=== PATIENT | female | born 1985 | race Caucasian/White ===

== ENCOUNTER 2021-06-23 10:02 | Outpatient (CLI) | payer BC, SELFPAY ==
--- NOTE | 2021-06-23 10:14 | MR_ITS ---
WS: [id number] MRI LUMBAR SPINE NONCONTRAST TECHNIQUE: Sagittal T1, T2 and STIR imaging. Axial T1 and T2 imaging. CLINICAL INFORMATION: LUMBAR BACK PAIN AND RADICULOPATHY COMPARISON: None. FINDINGS: Mild lumbar curve. No acute compression. No high-grade central canal stenosis. L1-L2: Normal. L2-L3: Normal. L3-L4: Minimal annular bulging. Mild facet arthropathy. Spinal canal and foramen are patent. L4-L5: Mild annular bulging. Mild facet arthropathy. Slight effacement of ventral thecal sac. Tiny ri ght foraminal protrusion with mild right foraminal narrowing. Correlation right L4 nerve root symptoms. Spinal canal and left foramen are patent. L5-S1: Minimal annular bulging. Mild facet arthropathy. Spinal canal and foramen are patent. Visualized pelvic bony structures: Normal. Paravertebral soft tissues: Normal. MR/MR lumbar spine wo con* [id number] IMPRESSION: 1. Mild lumbar curve. No acute compression. No high-grade central canal stenos is. 2. Mild annular bulging L4-5 with slight effacement of ventral thecal sac. Tin y right foraminal protrusion with mild right foraminal narrowing. 3. Otherwise no significant spinal canal or foraminal narrowing. 4. Mild facet arthropathy L3-L4 and L4-L5.
== END 2021-06-23 10:03 | disposition home or self-care (01) ==
PROVIDERS: PCP Family Medicine; Visit Provider Family Medicine
DX: M54.16 Radiculopathy, lumbar region (principal); M47.816 Spondylosis without myelopathy or radiculopathy, lumbar region
CPT/HCPCS: 72148

== ENCOUNTER 2021-08-13 12:27 | Outpatient (CLI) | payer BC, SELFPAY ==
[2021-08-13 13:10] LABS: Basophils # 0.1 10^3/uL (0.0-0.1); Basophils % 1.3 %; Eosinophils # 0.1 10^3/uL (0.0-0.8); Eosinophils % 2.2 %; Hematocrit 30.2 % (37.0-47.0); Hemoglobin 9.5 g/dL (11.5-15.3); Lymphocytes # 1.9 10^3/uL (0.8-4.8); Mean Corpuscular HGB Conc 31.5 g/dL (30.0-36.0); Mean Corpuscular Hemoglobin 25.3 pg (28.0-34.0); Mean Corpuscular Volume 80.5 fl (81-99); Mean Platelet Volume 10.2 fL (7.4-10.4); Monocytes # 0.4 10^3/uL (0.2-0.9); Monocytes % 5.7 %; Neutrophils # 3.86 10^3/uL (1.8-7.7); Neutrophils % 60.6 %; Nucleated Red Blood Cells % 0 %; Platelet Count 207 10^3/cmm (130-400); Red Blood Count 3.75 10^6/uL (4.1-5.3); Red Cell Distribution Width 16.2 % (12.1-15.1); White Blood Count 6.4 10^3/uL (4.0-10.0)
[2021-08-13 13:49] LABS: Anion Gap 13.7 (5-19); Blood Urea Nitrogen 4 mg/dL (6-20); C Reactive Protein 0.3 mg/L (0.0-4.9); CKMB 8.6 ng/mL (0-5.34); CKMB Relative Index 2.5 % (0.0-10.4); Calcium 8.3 mg/dL (8.5-10.5); Carbon Dioxide 23 mmol/L (22-29); Chloride 97 mmol/L (98-107); Glomerular Filtration Rate 111.9 mL/min (90-130); Glucose 81 mg/dL (65-115); Osmolality Calculated 266 mOsm/kg (285-295); Potassium 3.7 mmol/L (3.5-5.1); Sodium 130 mmol/L (136-145)
[2021-08-13 14:21] LABS: Creatine Phosphokinase 338 U/L (26-192)
[2021-08-14 14:01] LABS: Erythrocyte Sedimentation Rate 6 mm/hr (0-15)
== END 2021-08-13 12:28 | disposition home or self-care (01) ==
PROVIDERS: PCP Family Medicine; Visit Provider Surgery
DX: M19.90 Unspecified osteoarthritis, unspecified site (principal); M54.16 Radiculopathy, lumbar region; R20.0 Anesthesia of skin; M47.816 Spondylosis without myelopathy or radiculopathy, lumbar region
CPT/HCPCS: 36415; 80048; 82550; 82553; 85025; 85651; 86140

== ENCOUNTER 2021-08-14 10:46 | Outpatient (CLI) | payer BC, SELFPAY ==
[2021-08-14 12:42] LABS: Creatine Phosphokinase 281 U/L (26-192)
[2021-08-17 12:56] LABS: Aldolase 4.4 U/L (< OR = 8.1)
[2021-08-17 14:53] LABS: Anti-Nuclear Antibody Screen NEGATIVE (NEGATIVE)
== END 2021-08-14 10:47 | disposition home or self-care (01) ==
PROVIDERS: PCP Family Medicine; Visit Provider Surgery
DX: M19.90 Unspecified osteoarthritis, unspecified site (principal); M54.16 Radiculopathy, lumbar region; M47.816 Spondylosis without myelopathy or radiculopathy, lumbar region
CPT/HCPCS: 36415; 82085; 82550; 86038

== ENCOUNTER 2021-08-31 10:34 | Outpatient (CLI) | payer BC, SELFPAY ==
--- NOTE | 2021-08-31 10:42 | XR_ITS ---
WS: [id number] Exam: XR thoracic spine 3V* [id number] Date/Time of Exam: 08/31/2021 10:58 AM Reason For Exam: PAIN IN THORACIC SPINE No acute fracture or dislocation. Mild spondylosis. Slight dextroscoliosis. Normal paraspinal soft ti ssues. XR/XR thoracic spine 3V* [id number] IMPRESSION: 1. Mild scoliosis. No fracture or malalignment.
--- NOTE | 2021-08-31 10:42 | XR_ITS ---
WS: [id number] Exam: XR lumbar spine f/e only [id number] Date/Time of Exam: 08/31/2021 10:58 AM Reason For Exam: VERTEBROGENIC LOW BACK PAIN No fracture or dislocation. Disc spaces are preserved. No flexion or extension instability seen. XR/XR lumbar spine f/e only [id number] IMPRESSION: 1. No flexion or extension instability identified.
== END 2021-08-31 10:35 | disposition home or self-care (01) ==
PROVIDERS: PCP Family Medicine; Visit Provider Nurse Practitioner
DX: M54.51 Vertebrogenic low back pain (principal); M41.84 Other forms of scoliosis, thoracic region
CPT/HCPCS: 72072; 72120

== ENCOUNTER 2022-03-26 13:34 | Outpatient (CLI) | payer BC, SELFPAY ==
--- NOTE | 2022-03-26 13:41 | MM_ITS ---
WS: [id number] DIAGNOSTIC BILATERAL DIGITAL BREAST TOMOSYNTHESIS MAMMOGRAPHY WITH CAD LEFT breast ultrasound, limited. HISTORY: Palpable areas LEFT breast. COMPARISON: None available. TECHNIQUE: Bilateral craniocaudad, mediolateral oblique, and mediolateral views are submitted with to mosynthesis and SM. Spot compression views LEFT CC and MLO. Computer aided detection utilized. Breast composition: The breasts are extremely dense, which lowers the sensitivity of mammography. Macy y dense fibroglandular pattern. 11 mm slightly lobulated hyperdense mass along the 9:00 axis of the L EFT breast posteriorly against the chest wall. This does correspond to a palpable marker. Additional palpable markers placed along the inferior medial LEFT breast and also towards the axillary tail. No underlying distortion or mass identified. There is very dense fibroglandular tissue. Both of these ar eas will be also evaluated by ultrasound. The RIGHT breast is negative. LEFT breast ultrasound, limited. LEFT breast 2:00; very dense fibroglandular tissue but no discrete mass or increased vascularity. LEFT breast at 8:00 2 cm from the nipple; small cluster of cysts measures 6 x 7 x 4 mm. No increased vascularity. LEFT breast at 8:00 near the areolar; small cyst measures 4 x 4 by 4 mm. LEFT breast at 10:00, 4 cm from the nipple; solid lobulated mass corresponds to the mammographic abno rmality. Mass is hypoechoic measuring 1.2 x 1.3 x 0.8 cm. No increased vascularity. MM/[place] [id number] IMPRESSION: BI-RADS: 4-Suspicious Finding-Biopsy Should Be Considered FOLLOW UP: Biopsy Recommended Ultrasound-guided biopsy recommended of the solid mass at 10:00 LEFT breast pos t 4 cm from the nipple. Benign fibroadenoma within the differential.
== END 2022-03-26 13:35 | disposition home or self-care (01) ==
LOC: RAD 13:34
PROVIDERS: PCP Family Medicine; Visit Provider Family Medicine
DX: N63.22 Unspecified lump in the left breast, upper inner quadrant (principal)
CPT/HCPCS: 76642; 77062

== ENCOUNTER 2022-04-15 12:18 | Outpatient (CLI) | payer BC, SELFPAY ==
--- NOTE | 2022-04-15 12:28 | US_ITS ---
WS: [id number] ULTRASOUND-GUIDED LEFT BREAST BIOPSY HISTORY: Solid LEFT breast mass at 10:00. COMPARISON: 03/26/2022 Procedure, risks and complications are explained to the patient. Medications are reviewed. Consent is obtained. The mass in the LEFT breast is localized with ultrasound. Mass localizes to 10:00. Skin is cleansed w ith ChloraPrep and anesthetized with 1% buffered lidocaine. Small dermatome is made. Under sterile co nditions mass is biopsied with a 14-gauge Achieve needle. Multiple core biopsies are performed. Mater ial placed in formalin and sent to pathology for review. No complications encountered. Breast tissue marker ([employer] ultrasound enhanced ribbon): Single. Patient left the radiology suite with no complications. Patient is instructed to return to [facility] or [facility] with any concerns. US/[place] [id number] IMPRESSION: 1. Uncomplicated core needle biopsy LEFT breast mass at 10:00. PATHOLOGY: Fibroadenoma. No malignancy. RECOMMENDATION: Return to annual screening mammography.
== END 2022-04-15 12:19 | disposition home or self-care (01) ==
LOC: RAD 12:18
PROVIDERS: PCP Family Medicine; Visit Provider Family Medicine
DX: R92.8 Other abnormal and inconclusive findings on diagnostic imaging of breast (principal); D24.2 Benign neoplasm of left breast
CPT/HCPCS: 19083; 88305

== ENCOUNTER 2022-08-20 07:16 | Outpatient (CLI) | payer BC, SELFPAY ==
--- NOTE | 2022-08-20 07:30 | CT_ITS ---
WS: [id number] CT PARANASAL SINUSES HISTORY: evaluation of sinuses, chronic sinus pressure. TECHNIQUE: Contiguous 2.5 mm axial images obtained through the sinuses. Images are reconstructed in s agittal and coronal planes. All CT scans at [facility] use at least one of these dose optimiz ation techniques: automated exposure control; mA and/or kV adjustment per patient size (includes targ eted exams where dose is matched to clinical indication); or iterative reconstruction. DLP: 359.48 mGy.cm COMPARISON: None available. Frontal sinuses: Clear. Sphenoid sinus: Clear. No air-fluid levels. Oseguera are intact. Ethmoid sinuses: Clear. Maxillary sinus: Small sinus cavities. Complete opacification of the RIGHT maxillary sinus. Small muc ous retention cyst or polyp in the LEFT maxillary cavity. No air-fluid levels. Ostiomeatal unit: Soft tissue encroachment along the RIGHT uncinate process along the base of the ost iomeatal unit. Soft tissue is from the complete opacification within the maxillary sinus. There is an additional minimal obstruction of the LEFT ostiomeatal unit at the uncinate process. Large RIGHT mid dle turbinate conchal bullosa. Normal appearance of the cribriform plate and santana ned. Upper cervical spine is negative. CT/CT sinus wo con* [id number] IMPRESSION: 1. Small bilateral maxillary sinus cavities. 2. Complete opacification of the RIGHT maxillary sinus resulting in obstructio n of the ostiomeatal unit. 3. Small mucous retention cyst in the LEFT maxillary sinus causing obstruction of the ostiomeatal unit.
== END 2022-08-20 07:17 | disposition home or self-care (01) ==
LOC: RAD 07:18
PROVIDERS: PCP Family Medicine; Visit Provider Otolaryngology
DX: R51.9 Headache, unspecified (principal); G89.29 Other chronic pain
CPT/HCPCS: 70486

== ENCOUNTER 2022-10-07 10:51 | Day surgery (SDC) | payer BC, SELFPAY ==
[2022-10-06 10:04] VITALS: BMI 25.8
[2022-10-07] VITALS (18 sets, daily range): BP systolic 129–163; BP diastolic 68–96; PULSE 61–100; RESP 10–19; TEMP 36.3–36.8; O2SAT 92–100
--- NOTE | 2022-10-07 11:20 | W.PM.OPSUD ---
Surgery/Procedure H&P Update DATE OF PROCEDURE: October 07, 2022 DATE H&P PERFORMED: 10/04/22 H&P UPDATE INFORMATION: I have reviewed H&P completed within last 30 days, I have examined patient prior to procedure and No changes to prior documentation CHANGES TO PREVIOUS DOCUMENTATION: No changes PREOP DIAGNOSIS: Chronic maxillary sinusitis/deviated nasal septum/turbinate hypertrophy PRIMARY INDICATION FOR PROCEDURE: Deviated nasal septum with turbinate hypertrophy and right middle turbinate fara bullosa and chronic bilateral maxillary sinusitis. PLANNED PROCEDURE: Operation Date: 10/07/22 12:15 Proposed Procedures p endoscopic antrostomy with maxillary sinusectomy [id number] J34.3,J34.2,J34.89,J23.0(Not Applicable) - Bartolo Stewart MD s Septoplasty(Not Applicable) - Bartolo Stewart MD s turbinate reduction of both inferior turbinates and resection of the right middle turbinate(Not Applicable) - Bartolo Stewart MD
[2022-10-07] MEDS: sodium chloride 0.9% 1,000 ML 30 ML IV (11:52)
[2022-10-07 12:10] LABS: OR HCG Qualitative Urine Negative (Negative)
--- NOTE | 2022-10-07 12:12 | ANES.PREANE2 ---
Pre-Anesthetic Assessment Height/Weight: Height 1.73 m Weight 77.111 kg Temp Pulse Resp BP Pulse Ox O2 Del Method 98.3 F 77 18 146/84 100 10/07/22 11:14 10/07/22 11:14 10/07/22 11:14 10/07/22 11:14 10/07/22 11:14 10/07/22 11:19 Preop Diagnosis: Chronic maxillary sinusitis/deviated nasal septum/turbinate hypertrophy Operation Date: 10/07/22 12:15 Proposed Procedures p endoscopic antrostomy with maxillary sinusectomy [id number] J34.3,J34.2,J34.89,J23.0(Not Applicable) - Bartolo Stewart MD s Septoplasty(Not Applicable) - Bartolo Stewart MD s turbinate reduction of both inferior turbinates and resection of the right middle turbinate(Not Applicable) - Bartolo Stewart MD Familial anesthetic complications: PONV Was Beta [place] taken within 24 hours: N/A Was Clonidine taken within 24 hours: N/A Last intake: Intake Last Liquid Date 10/06/22 Last Liquid Time 23:55 Last Solid Date 10/06/22 Last Solid Time 17:30 Social No alcohol and No tobacco Exam alert, oriented x 3, clear to auscultation bilaterally and regular rate & rhythm Airway Mallampati: Class I Dentition: other (missing) Neuropsych Headache Anesthetic Plan ASA status: 2 Anesthesia: General Risk of > 500 ml blood loss (7ml/kg in children): No Medications/Allergies Home Medications Medication Instructions Recorded Confirmed Last Taken Type cetirizine 10 mg capsule (Zyrtec) 10 mg PO DAILY PRN Allergy Symptoms 08/02/22 10/06/22 10/05/22 History omeprazole 20 mg capsule,delayed 20 mg PO DAILY 08/02/22 10/06/22 10/07/22 History release Allergies Allergy/AdvReac Type Severity Reaction Status Date / Time No Known Allergies Allergy Verified 10/06/22 10:02 Current Medications Generic Name Dose Route Start Last Admin Trade Name Freq PRN Reason Stop Dose Admin Sodium Chloride 1,000 mls @ 30 mls/hr 10/07/22 11:00 10/07/22 11:52 Sodium Chloride 0.9% IV 10/08/22 10:59 30 mls/hr .Q24H DOT Administration PFSH Anesthesia Medical History Acid reflux Hx of back injury Hx of gastric ulcer Surgical History Hx of cholecystectomy Hx of tubal ligation Social History Smoking and tobacco status: current every day smoker Data Anesthesia Cardiac Studies: No Data to Display
[2022-10-07] MEDS: scopolamine 1.5 Patch 1 PATCH TRANSDERMA (12:23)
[2022-10-07] MEDS: ceFAZolin 2,000 MG in sodium chloride 0.9% (plus) 50 ML 100 MG IV (13:54)
[2022-10-07] MEDS: oxymetazoline 0.05% Nasal Spray 15 mL 2 SPRAY NOSTRIL-B (14:22)
[2022-10-07] MEDS: neomycin-poly-bacitracin oint 28 gm 1 APPLIC TOPICAL (14:34)
--- NOTE | 2022-10-07 15:06 | P.OP_ITS ---
Operative Report Date of procedure: October 07, 2022 Pre-op diagnosis: Preop Diagnosis Chronic maxillary sinusitis/deviated nasal septum/turbinate hypertrophy Post-op diagnosis: Same Post-op findings: Deviated septum superiorly to the left and inferiorly to the left of crest. 3- 4+ inferior turbinates bilaterally. 4+ right middle turbinate with fara b ullosa. 3+ left middle turbinate. Chronic bilateral maxillary sinusitis with mucocele. Procedure done: Septoplasty. Endoscopic bilateral antrostomy with maxillary sinusectomy. Partial bilateral inferior turbinate resection including right middle turbinate fara bullosa resection endoscopically. Bilateral inferior turbinate intramural cauterization and outfracturing. Implants: 2 septal splints and 2 intranasal Telfa packs. Specimens removed/disposition: Portions of septum, antrostomies with maxillary sinusectomy contents, portions of bilateral middle turbinates including right middle turbinate fara bullosa. Pathology: Same Surgeon: Bartolo Stewart MD Anesthesia: General and Local Estimated blood loss: 25 mL Complications: No complications encountered Findings: Patient found on exam and CT scan to have chronic bilateral maxillary sinusitis right side worse than left. Mucous retention cyst at ostiomeatal complex left side. Deviated septum to the left. Massive right middle turbinate fara bullosa. Inferior turbinate hypertrophy as well. Brief History: 37-year-old female patient with a history of chronic sinusitis nasal congestion with turbinate hypertrophy and facial pain and frontal region headaches confirmed with CT scan findings being brought to the operating room at this time to undergo septoplasty and bilateral antrostomy with maxillary sinusectomy and turbinate reduction including resection of right middle turbinate fara bullosa. The procedure its risks and complications of been explained in detail. These risks include bleeding infection numbness scarring swelling bruising septal hematoma abscess or perforation change in sense of smell nasal dryness recurrent sinus disease potential injury to orbit and orbital contents including loss of vision or blurred vision potential injury to teeth or teeth roots and more serious risks associated with anesthesia. With all these things understood informed consent was granted and witnessed. Procedure: Description of procedure: The patient was placed on the operating table in the supine position. Adequate general endotracheal tube anesthesia was obtained. The patient was then repositioned into a semirecumbent position. The patient's nose with packed with cottonoids soaked in 12-hour Afrin. Nasal hairs were then trimmed with scissors. Afrin packs were removed and the septum middle and inferior turbinates and middle meatus areas were all infiltrated with local utilizing a total of 10.2 mL of 2% Xylocaine with 1 100,000 epinephrine. The Afrin packs were reapplied to the nose and the patient was prepped and draped in usual fashion. A timeout was then accomplished identifying the patient date of plan procedure allergies fire risk and medications given. With all in agreement the procedure continued. The Afrin packs were removed from the nose. The inferior turbinates which remain 3-4+ hypertrophic were outfractured with a Franklin elevator and then cauterized intramurally with the needle tip Bovie. This was done anterior to posterior on both inferior turbinates equally. At this point it was decided to proceed with a septoplasty. A left hemitransfixion incision was created with a 15 blade. It was carried down to the septal cartilage. A mucoperichondrial and periosteal flap was then raised on the left side. This was done in all directions. Inferior strip of cartilage off the crest to the left side was resected with a half round knife and [facility] eps. The deviation of the bony septum more superiorly and posteriorly was fractured with a Franklin elevator and with a closed reduction of that portion. That was placed from left to right making the septum now a straight position. Then a Franklin elevator was used to elevate and infracture the left middle turbinate. Then with direct and endoscopic visualization with a 30 degree endoscope the uncinate process region was identified removed and then the maxillary sinus was opened with up-biting through-cutting forceps and backbiting through-cutting forceps. Contents of the sinus with inflammation on the left side with cyst was removed. The remainder of the sinus was then clear. Attention was turned to the right middle turbinate. This had the large fara bullosa in it. Turbinate scissors were used to cut the distal aspect which was bulbous and remove the bone encasing the air pocket and the fara bullosa. Up- biting through-cutting forceps were then used to remove the distal aspect and the excess bone. The entire superior attachment was left in place. This gave access to the middle meatus. A similar procedure as was done on the left side was done on the right side. Again mucous retention cyst was found and removed. Attention was then turned back to the left middle turbinate which was still too large and was actually blocking up the antrostomy site. Therefore the distal aspect of the left middle turbinate was resected as well. With this accomplished the septum now rested in a good straight midline position. The inferior turbinates were proper size. The middle turbinates and the fara bullosa being gone did show good access to both antrostomy sites. Both maxillary sinuses were clear. Irrigation was accomplished. Suctioned clean. Left hemitransfixion incision was closed loosely with interrupted 4-0 chromic suture. Drainage site was created to prevent hematoma formation. 2 septal splints were coated with Neosporin and one was applied each side of the septum and these were sutured in a through and through fashion with 3-0 Prolene. Then 2 Telfa packs were cut to size coated with Neosporin and one was applied each side of the nose to aid with hemostasis and to keep the septum also in the good midline position. The mouth and oropharynx were suctioned clean. Irrigated with saline and suctioned again. Eyes were checked and found to be normal. The drapes were removed and the patient had a drip pad applied under the nose and then she was returned to anesthesia for wake-up and extubation. She tolerated the procedure well had an estimated blood loss of 25 mL and arrived in recovery in stable condition.
[2022-10-07] MEDS: ondansetron 2 mg/ML SDV 2 mL 4 MG IVP ×2 (15:25→15:46)
[2022-10-07] MEDS: fentaNYL 50 mcg/mL INJ 2mL IVP ×2 (15:26→15:40)
[2022-10-07] MEDS: HYDROmorphone 1 mg/mL INJ 1 mL 0.5 MG IVP (15:59)
--- NOTE | 2022-10-07 16:04 | PC.NURSE ---
CONTINUES TO COMPLAIN OF HEAD, JAW, AND NASAL PAIN. DILAUDID GIVEN PER ORDERS.
[2022-10-07] MEDS: metoclopramide 5 mg/mL SDV 2 mL 10 MG IVP (16:12)
--- NOTE | 2022-10-07 16:13 | PC.NURSE ---
PATIENT NOT FEELING MUCH RELIEF WITH IV PAIN MANAGEMENT. BECOMES NAUSEATED POST IV PAIN MED ADMINISTRATION. TREATED WITH REGLAN. WANTS TO TRY PAIN PILL INSTEAD OF IV.
== END 2022-10-07 16:53 | disposition home or self-care (01) ==
PROVIDERS: Anesthesiology; PCP Family Medicine; Visit Provider Otolaryngology
PROC: (CPT 30520; principal; 2022-10-07 12:05)
PROC: (CPT 30520; 2022-10-07 12:05)
PROC: (CPT 30520; 2022-10-07 12:05)
PROC: 095K8ZZ Destruction of Nasal Mucosa and Soft Tissue, Via Natural or Artificial Opening Endoscopic (ICD-10-PCS; CPT 31238; 2022-10-07 12:05)
DX: J34.2 Deviated nasal septum (principal); J34.3 Hypertrophy of nasal turbinates; J34.89 Other specified disorders of nose and nasal sinuses; J32.0 Chronic maxillary sinusitis; K21.9 Gastro-esophageal reflux disease without esophagitis; Z87.11 Personal history of peptic ulcer disease; F17.200 Nicotine dependence, unspecified, uncomplicated; R51.9 Headache, unspecified; G89.29 Other chronic pain
CPT/HCPCS: 30520; 31240; 31267; 81025; 84703; 88305; J0690; J1100; J1170; J2250; J2405; J2704; J2710; J2765; J3010; J3490; J7030

== ENCOUNTER 2023-03-25 10:07 | Outpatient (CLI) | payer BC, SELFPAY ==
--- NOTE | 2023-03-25 10:19 | US_ITS ---
WS: [id number] US transvaginal [id number] HISTORY: ABNORMAL VAGINAL BLEEDING COMPARISON: None available. Uterus: 9.2 cm x 5.3 cm x 5.3 cm. Mildly enlarged anteverted uterus. Mild heterogeneity throughout the myometrium. Small fibroid superi leroy measures 6 x 7 x 10 mm. Endometrium: 1.7 cm. Endometrium is top normal size. There is heterogeneity throughout the endometriu m. Loss of the normal junctional zone anteriorly. There is no increased vascularity. Right ovary: 2.5 cm x 2.2 cm x 2.0 cm. Normal size and vascularity, no cystic or solid masses. Left ovary: 4.6 cm x 3.7 cm x 3.0 cm. Enlarged ovary. Simple cyst associated with the ovary measures 3.5 x 2.5 x 3.6 mm. No free fluid in the cul-de-sac. US/US transvaginal [id number] IMPRESSION: 1. Abnormal endometrium. Thickened endometrium with heterogeneity and a few sm all cystic areas. Loss of the normal junctional zone. Evaluation for adenomyosi s and endometrial neoplasm should be obtained performed. 2. LEFT ovarian cyst with a maximum diameter 3.6 cm. O-RADS 2. 3. Mildly enlarged uterus with at least one fibroid towards the fundus measuri ng 10 mm.
== END 2023-03-25 10:08 | disposition home or self-care (01) ==
PROVIDERS: PCP Family Medicine; Visit Provider Nurse Practitioner Family
DX: N93.9 Abnormal uterine and vaginal bleeding, unspecified (principal); N83.202 Unspecified ovarian cyst, left side; N85.2 Hypertrophy of uterus; D25.9 Leiomyoma of uterus, unspecified; R93.89 Abnormal findings on diagnostic imaging of other specified body structures
CPT/HCPCS: 76830

== ENCOUNTER 2023-03-25 12:17 | Emergency (ER) | payer BC, SELFPAY ==
[2023-03-25 12:26] VITALS: BP 146/84; PULSE 98; RESP 16; TEMP 36.9; O2SAT 100; BMI 27.3
[2023-03-25 12:59] LABS: Basophils # 0.1 10^3/uL (0.0-0.1); Basophils % 1.3 %; Eosinophils # 0.1 10^3/uL (0.0-0.8); Eosinophils % 1.7 %; Hematocrit 23.2 % (37.0-47.0); Lymphocytes # 1.6 10^3/uL (0.8-4.8); Lymphocytes % 29.1 %; Mean Corpuscular Hemoglobin 19.6 pg (28.0-34.0); Mean Corpuscular Volume 69.9 fl (81-99); Mean Platelet Volume 10.6 fL (7.4-10.4); Monocytes # 0.3 10^3/uL (0.2-0.9); Monocytes % 5.2 %; Neutrophils # 3.35 10^3/uL (1.8-7.7); Neutrophils % 62.5 %; Nucleated Red Blood Cells % 0 %; Platelet Count 299 10^3/cmm (130-400); Red Blood Count 3.32 10^6/uL (4.1-5.3); Red Cell Distribution Width 19.7 % (12.1-15.1); White Blood Count 5.4 10^3/uL (4.0-10.0)
[2023-03-25 13:11] LABS: Hemoglobin 6.5 g/dL (11.5-15.3)
[2023-03-25 14:38] LABS: HCG, Serum Qual Negative (Negative)
[2023-03-25 14:41] LABS: Alanine Aminotransferase 22 U/L (0-33); Albumin Level 4.2 g/dL (3.5-5.2); Alkaline Phosphatase 50 U/L (35-105); Anion Gap 12.7 (5-19); Aspartate Amino Transferase 19 U/L (0-32); Blood Urea Nitrogen 7 mg/dL (6-20); Calcium 8.9 mg/dL (8.5-10.5); Carbon Dioxide 24 mmol/L (22-29); Chloride 109 mmol/L (98-107); Globulin 2.2 g/dL (1.3-4.6); Glomerular Filtration Rate 69.7 mL/min (90-130); Glucose 98 mg/dL (65-115); Osmolality Calculated 292 mOsm/kg (285-295); Potassium 3.7 mmol/L (3.5-5.1); Sodium 142 mmol/L (136-145); Total Bilirubin 0.4 mg/dL (0.15-1.2); Total Protein 6.4 g/dL (6.6-8.7)
--- NOTE | 2023-03-25 14:56 | ED_ITS ---
HPI - Female Genitourinary General: Chief complaint: Urogenital-Female Stated complaint: sent by bc/abn labs/anemia Time Seen by Provider: 03/25/23 14:45 History of Present Illness: Presents to the ER for complaints of [facility] lab [facility]. Patient states her hemoglobin was 6.0. Patient states she has been bleeding from the vagina for 1 month and could not get in with her normal doctor. 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 Patient does states she has been feeling very fatigued and tired. Review of Systems General: Reports: 10 or more systems reviewed and unremarkable except in HPI and below PFSH ED PFSH: Medical History Acid reflux Hx of back injury Hx of gastric ulcer Surgical History History of nasal surgery Hx of cholecystectomy Hx of tubal ligation Social History Smoking and tobacco status: current every day smoker Physical Exam Const: COMMON NORMALS: no acute distress, average body habitus, patient oriented x3, no limitations, healthy appearing, alert and well nourished HENMT: COMMON NORMALS: normocephalic, atraumatic, hearing grossly normal bilaterally, external ears normal, Normal external nose present and moist oral mucous membranes HEAD & SCALP: normocephalic and atraumatic NOSE: Normal external nose present EXTERNAL EAR: Yes external ears normal Eye: COMMON NORMALS: Equal, round and reactive pupils present, EOMs intact bilaterally, conjunctivae normal and no scleral icterus CONJUNCTIVA: Yes conjunctivae normal PUPIL: Yes Equal, round and reactive pupils present Neck/C-Spine: COMMON NORMALS: full ROM, no lymphadenopathy, supple, no meningeal signs, no JVD and Thyroid normal THYROID: Thyroid normal Chest: COMMONS NORMALS: normal inspection of the chest and normal palpation of entire chest wall Resp: COMMON NORMALS: normal respiratory effort, No retractions, No use of accessory muscles and clear to auscultation bilaterally AUSCULTATION: clear to auscultation bilaterally Cardio: COMMON NORMALS: no JVD, regular rate, regular rhythm, S1 normal heart sound present, S2 normal heart sound present, No gallops present (Cardio), No clicks present (Cardio), No murmurs present (Cardio) and No rub (Cardio) RATE: regular rate RHYTHM: regular rhythm HEART SOUNDS: S1 normal heart sound present and S2 normal heart sound present GI: COMMON NORMALS: Normal to inspection, nondistended, normoactive bowel sounds present, Soft to palpation, non-tender, No hepatosplenomegaly present and no masses PALPATION: Yes Soft to palpation and Yes No hepatosplenomegaly present Neuro: COMMON NORMALS: patient oriented x3 SENSORIUM/ORIENTATION: Yes alert MENINGEAL SIGNS: Yes no meningeal signs Course Vital Signs: Vital signs: Vital Signs Temperature 98.4 F 03/25/23 12:26 Pulse Rate 98 03/25/23 12:26 Respiratory Rate 16 03/25/23 12:26 Blood Pressure 146/84 03/25/23 12:26 Pulse Oximetry 100 03/25/23 12:26 Oxygen Delivery Me thod Room Air 03/25/23 12:26 MDM - Female Medical Decision Making Presents with abnormal vaginal bleeding and anemia. Lab work was really obtained which showed a hemoglobin of 6.5. Patient was typed and crossed and transfused 1 unit packed red cells. Patient should follow-up with her normal doc at her already scheduled appointment next week for further evaluation and treatment. An ultrasound was reviewed today which showed a thickened endometrium and this was discussed with the patient that this needs further evaluation and treatment. Patient be discharged home Differential Diagnosis Unlikely abdominal pain, acute appendicitis, calculus of kidney, constipation, diverticulitis, endometriosis, gastroenteritis, pancreatitis or small bowel obstruction Medical Records I reviewed the patient's medical records. Lab Data I reviewed the patient's lab results. 03/25/23 12:48 03/25/23 12:48 Laboratory Results WBC 5.4 10^3/uL (4.0-10.0) 03/25/23 12:48 RBC 3.32 10^6/uL (4.1-5.3) L 03/25/23 12:48 Hgb 6.5 g/dL (11.5-15.3) L* 03/25/23 12:48 Hct 23.2 % (37.0-47.0) L 03/25/23 12:48 MCV 69.9 fl (81-99) L 03/25/23 12:48 MCH 19.6 pg (28.0-34.0) L 03/25/23 12:48 MCHC 28.0 g/dL (30.0-36.0) L 03/25/23 12:48 RDW 19.7 % (12.1-15.1) H 03/25/23 12:48 Plt Count 299 10^3/cmm (130-400) 03/25/23 12:48 MPV 10.6 fL (7.4-10.4) H 03/25/23 12:48 Neut % (Auto) 62.5 % 03/25/23 12:48 Lymph % (Auto) 29.1 % 03/25/23 12:48 [place] % (Auto) 5.2 % 03/25/23 12:48 Eos % (Auto) 1.7 % 03/25/23 12:48 Baso % (Auto) 1.3 % 03/25/23 12:48 Neut # (Auto) 3.35 10^3/uL (1.8-7.7) 03/25/23 12:48 Lymph # (Auto) 1.6 10^3/uL (0.8-4.8) 03/25/23 12:48 [place] # (Auto) 0.3 10^3/uL (0.2-0.9) 03/25/23 12:48 Eos # (Auto) 0.1 10^3/uL (0.0-0.8) 03/25/23 12:48 Baso # (Auto) 0.1 10^3/uL (0.0-0.1) 03/25/23 12:48 Nucleated RBC % (auto) 0 % 03/25/23 12:48 Nucleated RBCs # 0.0 /100WBC 03/25/23 12:48 Sodium 142 mmol/L (136-145) 03/25/23 12:48 Potassium 3.7 mmol/L (3.5-5.1) 03/25/23 12:48 Chloride 109 mmol/L (98-107) H 03/25/23 12:48 Carbon Dioxide 24 mmol/L (22-29) 03/25/23 12:48 Anion Gap 12.7 (5-19) 03/25/23 12:48 BUN 7 mg/dL (6-20) 03/25/23 12:48 Creatinine 0.9 mg/dL (0.5-0.9) 03/25/23 12:48 GFR Calculation 69.7 mL/min (90-130) L 03/25/23 12:48 Glucose 98 mg/dL (65-115) 03/25/23 12:48 Calculated Osmolality 292 mOsm/kg (285-295) 03/25/23 12:48 Calcium 8.9 mg/dL (8.5-10.5) 03/25/23 12:48 Total Bilirubin 0.4 mg/dL (0.15-1.2) 03/25/23 12:48 AST 19 U/L (0-32) 03/25/23 12:48 ALT 22 U/L (0-33) 03/25/23 12:48 Alkaline Phosphatase 50 U/L (35-105) 03/25/23 12:48 Total Protein 6.4 g/dL (6.6-8.7) L 03/25/23 12:48 Albumin 4.2 g/dL (3.5-5.2) 03/25/23 12:48 Globulin 2.2 g/dL (1.3-4.6) 03/25/23 12:48 HCG, Qual Negative (Negative) 03/25/23 12:48 Blood Type A Positive 03/25/23 12:48 Rho(D) Type Positive 03/25/23 12:48 Antibody Screen Negative 03/25/23 12:48 Discharge Plan Discharge Patient Disposition: Home Clinical Impression: Abnormal vaginal bleeding Anemia Qualifiers: Anemia type: other cause Condition: Stable Prescriptions: No Action fluticasone propionate [Flonase Allergy Relief] 50 mcg/actuation spray,suspension 1 spray intranasal DAILY Rx Instructions: administer into each nostril omeprazole 20 mg capsule,delayed release(DR/EC) 20 mg PO DAILY Zyrtec 10 mg capsule 10 mg PO DAILY PRN (Reason: Allergy Symptoms) Discharge Orders: Discharge ED (Routine); Ordered 03/25/23 Ordered By: Bryant Manriquez Referrals: Aura Downs MD [Primary Care Provider] - 1 week Patient Instructions: Anemia, Abnormal (Dysfunctional) Uterine Bleeding (ED) Activity Restrictions/Additional Instructions: Please keep your appointment already scheduled with your primary care doctor as your anemia and your vaginal bleeding will need further work-up and treatment. Please return to the ER if your symptoms worsen. Coding Level of Care Code ED Systems Development Consultant for Joanna Morel
[2023-03-25 15:40] VITALS: BP 136/68; PULSE 85; RESP 16; O2SAT 100
[2023-03-25 16:40] VITALS: BP 141/74; PULSE 72; RESP 18; TEMP 36.7; O2SAT 100
[2023-03-25] MEDS: sodium chloride 0.9% 100 mL Bag 50 ML IV (16:50)
[2023-03-25 16:55] VITALS: BP 133/80; PULSE 72; RESP 18; TEMP 36.7; O2SAT 100
[2023-03-25 17:38] VITALS: BP 133/78; PULSE 69; RESP 16; O2SAT 99
== END 2023-03-25 18:45 | disposition home or self-care (01) ==
PROVIDERS: Family Medicine; Physician Assistant; Emergency Provider Emergency Medicine; PCP Family Medicine
DX: N93.9 Abnormal uterine and vaginal bleeding, unspecified (principal); D64.89 Other specified anemias; F17.210 Nicotine dependence, cigarettes, uncomplicated
CPT/HCPCS: 36430; 80053; 84703; 85025; 86850; 86900; 86920; 99284; P9016

== ENCOUNTER 2023-04-06 07:50 | Outpatient (RCR) | payer BC, SELFPAY ==
[2023-04-05 11:18] LABS: Basophils # 0.1 10^3/uL (0.0-0.1); Basophils % 1.6 %; Eosinophils # 0.1 10^3/uL (0.0-0.8); Hematocrit 28.2 % (37.0-47.0); Hemoglobin 7.9 g/dL (11.5-15.3); Lymphocytes # 1.5 10^3/uL (0.8-4.8); Lymphocytes % 22.3 %; Mean Platelet Volume 11.1 fL (7.4-10.4); Monocytes # 0.3 10^3/uL (0.2-0.9); Monocytes % 4.5 %; Neutrophils # 4.83 10^3/uL (1.8-7.7); Neutrophils % 70.3 %; Nucleated Red Blood Cells % 0 %; Platelet Count 255 10^3/cmm (130-400); Red Blood Count 3.76 10^6/uL (4.1-5.3); Red Cell Distribution Width 23.9 % (12.1-15.1); White Blood Count 6.9 10^3/uL (4.0-10.0)
[2023-04-06] VITALS (9 sets, daily range): BP systolic 108–139; BP diastolic 59–81; PULSE 57–72; RESP 18; TEMP 36.4–36.8; O2SAT 96–100
[2023-04-06] MEDS: acetaminophen 325 mg Tablet 650 MG PO (08:00)
[2023-04-06] MEDS: sodium chloride 0.9% 100 mL Bag 50 ML IV ×2 (08:01→10:34)
--- NOTE | 2023-04-06 08:20 | PC.NURSE ---
Pt referred to GI infusions for blood transfusion from Dr. Downs. Hg 04/05/23 noted at 7.9. Two units to be transfused as ordered. Pt pre-medicated with Tylenol but refused the Benadryl, stating she already took an antihistamine this morning. No questions or concerns at this time. First unit transfusing without difficulty. No reaction noted.
[2023-04-06] MEDS: FUROsemide 10 mg/mL SDV 2mL IVP (10:20)
--- NOTE | 2023-04-06 12:18 | PC.NURSE ---
Pt tolerated both units PRBCs without difficulty. Received Lasix 10 mg between units as ordered. Off unit ambulatory. No questions or concerns.
== END 2023-04-25 23:59 | disposition home or self-care (01) ==
LOC: GILAB 07:50
PROVIDERS: PCP Family Medicine; Visit Provider Family Medicine
DX: N93.9 Abnormal uterine and vaginal bleeding, unspecified (principal); Z79.899 Other long term (current) drug therapy
CPT/HCPCS: 36415; 36430; 85025; 86850; 86900; 86920; J1940; P9016

== ENCOUNTER 2023-04-07 12:49 | Observation (INO) | payer BC, OTHER, SELFPAY ==
[2023-04-07 12:52] VITALS: BP 171/89; PULSE 72; RESP 20; TEMP 36.5; O2SAT 100; BMI 27.0
--- NOTE | 2023-04-07 13:14 | ECG_ITS ---
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 Measurements Intervals [place] Rate: 63 P: 76 [place]: 143 QRS: 83 QRSD: 111 T: 61 QT: 421 QTc: 433 Interpretive Statements SINUS RHYTHM MODERATE INTRAVENTRICULAR CONDUCTION DELAY [110+ ms QRS DURATION] MODERATE ST DEPRESSION [0.05+ mV ST DEPRESSION] No previous ECG available for comparison Electronically Signed On 04-07-2023 14:52:03 CDT by Darius Simon M.D. [id number]
--- NOTE | 2023-04-07 13:27 | W.ED.DIZZY ---
HPI - Dizziness General: Chief Complaint: ER Hold Stated Complaint: dizzy/vertigo/N/tingling in extremities Time Seen by Provider: 04/07/23 12:58 Source: patient Mode of arrival: ambulatory History of Present Illness: HPI Narrative: 37-year-old female comes in generally not feeling well she says she is nauseous and dizzy. She was anemic and received 2 units of blood yesterday. She woke up this morning feeling weak she took some Tylenol and Benadryl at the direction of her primary care doctor. She also complained of some left flank pain. She was transfused because she developed anemia secondary to mental menorrhagia in March 25 she had an ultrasound done that showed abnormal endometrium radiology recommended evaluation for endometrial CA. She has a pending appointment with gynecology. She is not having any bleeding at this time. She was started on a doubled up course of contraceptive pills to cease her bleeding prior to that she had been on medroxyprogesterone. MD elicited complaint: dizziness and lightheadedness Onset (ago): minute(s) Associated symptoms: Reports other; Denies abnormal vaginal bleeding, change in hearing, chest pain, chills, cough, diaphoresis, ear discharge, ear pressure, fevers/chills, headache(s), malaise, nausea, nasal congestion, palpitations, rash, short of breath, syncope, tinnitus, vomiting or weakness Review of Systems Const: Denies: fever(s), chills, malaise or diaphoresis ENMT: Denies: ear discharge, change in hearing, tinnitus or nasal congestion Card: Denies: chest pain, palpitations or syncope GI: Denies: abdominal pain, nausea or vomiting Neuro: Denies: headache(s) PFSH ED PFSH: Medical History Acid reflux Hx of back injury Hx of gastric ulcer Surgical History History of nasal surgery Hx of cholecystectomy Hx of tubal ligation Family History (Updated 04/07/23 @ 16:41 by Magen Cazares MD) Grandmother Colon cancer Social History (Updated 04/07/23 @ 16:42 by Magen Cazares MD) Smoking and tobacco status: current every day smoker Alcohol intake: never Substance/Drug Use: never Physical Exam Const: GENERAL APPEARANCE: cooperative and comfortable ORIENTATION/CONSCIOUSNESS: Yes awake, Yes oriented to person, Yes oriented to place and Yes oriented to time HENMT: COMMON NORMALS: normocephalic, atraumatic and hearing grossly normal bilaterally HEAD & SCALP: normocephalic and atraumatic Resp: COMMON NORMALS: normal respiratory effort, No retractions, No use of accessory muscles and clear to auscultation bilaterally AUSCULTATION: clear to auscultation bilaterally Cardio: COMMON NORMALS: regular rate, regular rhythm and No murmurs present (Cardio) RATE: regular rate RHYTHM: regular rhythm GI: COMMON NORMALS: Soft to palpation and No hepatosplenomegaly present AUSCULTATION: Yes normoactive bowel sounds PALPATION: Yes Soft to palpation, No Tenderness to palpation present (GI), No Guarding due to palpation present (GI) and Yes No hepatosplenomegaly present Extremity: COMMON NORMALS: normal to inspection, capillary refill normal, no clubbing, cyanosis or edema, no calf tenderness and no pedal edema Neuro: SENSORIUM/ORIENTATION: Yes oriented to person, Yes oriented to place and Yes oriented to time Skin: COMMON NORMALS: no rashes or lesions noted GENERAL SKIN EXAM: no rashes or lesions noted Course Vital Signs: Vital signs: Vital Signs Temperature 98.0 F 04/08/23 08:00 Pulse Rate 59 L 04/08/23 12:00 Respiratory Rate 16 04/08/23 12:00 Blood Pressure 123/72 04/08/23 12:00 Pulse Oximetry 100 04/08/23 12:00 Oxygen Delivery Me thod Room Air 04/08/23 03:56 MDM - Dizziness Medical Decision Making Patient presents lightheaded and dizzy her baseline sodium has been 140 she is 122 today her hemoglobin is better. She has been very nauseous as well. I think the majority of her symptoms are due to her sudden hyponatremia may have been precipitated by her transfusion. She has received 3 units of blood in the last week and a half. She did have anemia testing done at an outside facility we will try to get records for that anemia testing today would not likely be helpful due to the fact that she just received 2 units of blood yesterday and would not reflect her actual parameters. She did have an abnormal pelvic ultrasound showing endometrial abnormality that needs further evaluation I discussed with Dr. Marie on-call for gynecology he recommends stopping all hormonal treatments and putting her on oral transischemic acid 2 tablets 3 times a day for 5 days. Case management work on making a short-term follow-up with gynecology for her. We will admit for her hyponatremia. Discussed with hospitalist orders written Medical Records I reviewed the patient's medical records. Lab Data I reviewed the patient's lab results. 04/08/23 05:47 04/08/23 05:47 Radiology Impressions Abdomen/Pelvis CT 04/07/23 16:24 IMPRESSION: 1. Periportal edema noted, a nonspecific imaging finding. Findings could reflect sequela of acute hepatitis or fluid resuscitation among other etiologies. Otherwise, no acute findings. 2. Borderline mild splenomegaly. Laboratory Results WBC 10.2 10^3/uL (4.0-10.0) H 04/07/23 13:30 RBC 4.34 10^6/uL (4.1-5.3) 04/07/23 13:30 Hgb 10.0 g/dL (11.5-15.3) L 04/07/23 13:30 Hct 32.3 % (37.0-47.0) L 04/07/23 13:30 MCV 74.4 fl (81-99) L 04/07/23 13:30 MCH 23.0 pg (28.0-34.0) L 04/07/23 13:30 MCHC 31.0 g/dL (30.0-36.0) 04/07/23 13:30 RDW 24.3 % (12.1-15.1) H 04/07/23 13:30 Plt Count 237 10^3/cmm (130-400) 04/07/23 13:30 MPV 10.2 fL (7.4-10.4) 04/07/23 13:30 Neut % (Auto) 75.8 % 04/07/23 13:30 Lymph % (Auto) 17.6 % 04/07/23 13:30 [place] % (Auto) 4.7 % 04/07/23 13:30 Eos % (Auto) 0.6 % 04/07/23 13:30 Baso % (Auto) 0.9 % 04/07/23 13:30 Neut # (Auto) 7.69 10^3/uL (1.8-7.7) 04/07/23 13:30 Lymph # (Auto) 1.8 10^3/uL (0.8-4.8) 04/07/23 13:30 [place] # (Auto) 0.5 10^3/uL (0.2-0.9) 04/07/23 13:30 Eos # (Auto) 0.1 10^3/uL (0.0-0.8) 04/07/23 13:30 Baso # (Auto) 0.1 10^3/uL (0.0-0.1) 04/07/23 13:30 Nucleated RBC % (auto) 0 % 04/07/23 13: Nucleated RBCs # 0.0 /100WBC 04/07/23 13:30 Peripher Smr Path Cons Sent for review 04/07/23 13:30 Haptoglobin 36.0 mg/L (30-200) 04/07/23 13:30 PT 15.70 SECONDS (12.1-14.9) H 04/07/23 13:30 INR 1.21 (0.8-1.2) H 04/07/23 13:30 Sodium 122 mmol/L (136-145) L 04/07/23 13:30 Potassium 3.2 mmol/L (3.5-5.1) L 04/07/23 13:30 Chloride 90 mmol/L (98-107) L 04/07/23 13:30 Carbon Dioxide 20 mmol/L (22-29) L 04/07/23 13:30 Anion Gap 15.2 (5-19) 04/07/23 13:30 BUN 6 mg/dL (6-20) 04/07/23 13:30 Creatinine 0.8 mg/dL (0.5-0.9) 04/07/23 13:30 GFR Calculation 79.9 mL/min (90-130) L 04/07/23 13:30 Glucose 89 mg/dL (65-115) 04/07/23 13:30 Calculated Osmolality 251 mOsm/kg (285-295) L 04/07/23 13:30 Calcium 8.6 mg/dL (8.5-10.5) 04/07/23 13:30 Iron 267 ug/dL (37-145) H 04/07/23 13:30 TIBC 415 mcg/dl 04/07/23 13:30 % Saturation 64.3 % (20-50) H 04/07/23 13:30 Unsat Iron Binding 148 ug/dL (112-347) 04/07/23 13:30 Ferritin 22 ng/mL (15-150) 04/07/23 13:30 Total Bilirubin 1.2 mg/dL (0.15-1.2) 04/07/23 13:30 Direct Bilirubin 0.20 mg/dL (0.00-0.30) 04/07/23 13:30 AST 25 U/L (0-32) 04/07/23 13:30 ALT 28 U/L (0-33) 04/07/23 13:30 Alkaline Phosphatase 46 U/L (35-105) 04/07/23 13:30 Lactate Dehydrogenase 194 U/L (135-214) 04/07/23 13:30 C-Reactive Protein 3.0 mg/L (0.0-4.9) 04/07/23 13:30 Total Protein 6.3 g/dL (6.6-8.7) L 04/07/23 13:30 Albumin 4.2 g/dL (3.5-5.2) 04/07/23 13:30 Globulin 2.1 g/dL (1.3-4.6) 04/07/23 13:30 Vitamin B12 484 pg/mL (232-1245) 04/07/23 13:30 Folate > 20.0 ng/mL (4.8-37.3) 04/07/23 13:30 TSH 2.73 uIU/mL (0.27-4.20) 04/07/23 13:30 HCG, Qual Negative (Negative) 04/07/23 14:10 Ser , Semi-Qnt 1.00 mIU/mL 04/07/23 13:30 Discharge Plan Discharge Patient Disposition: Admitted As Inpatient Admit Provider: Magen Cazares Clinical Impression: Acute hyponatremia, Abnormal ultrasound of uterus, Anemia Condition: Stable Discharge Diet: Regular and Cardiac Discharge Activity: Resume usual activity Coding Level of Care Code ED Shelf Drier Operator for Chg Adriel
[2023-04-07 13:42] LABS: Basophils # 0.1 10^3/uL (0.0-0.1); Basophils % 0.9 %; Eosinophils # 0.1 10^3/uL (0.0-0.8); Eosinophils % 0.6 %; Hematocrit 32.3 % (37.0-47.0); Lymphocytes # 1.8 10^3/uL (0.8-4.8); Lymphocytes % 17.6 %; Mean Corpuscular Volume 74.4 fl (81-99); Mean Platelet Volume 10.2 fL (7.4-10.4); Monocytes # 0.5 10^3/uL (0.2-0.9); Monocytes % 4.7 %; Neutrophils # 7.69 10^3/uL (1.8-7.7); Neutrophils % 75.8 %; Nucleated Red Blood Cells % 0 %; Platelet Count 237 10^3/cmm (130-400); Red Blood Count 4.34 10^6/uL (4.1-5.3); Red Cell Distribution Width 24.3 % (12.1-15.1); White Blood Count 10.2 10^3/uL (4.0-10.0)
[2023-04-07] MEDS: ondansetron 2 mg/ML SDV 2 mL 4 MG IVP (13:42)
[2023-04-07] MEDS: sodium chloride 0.9% 1,000 ML 999 ML IV ×2 (13:43→14:36)
[2023-04-07 14:01] LABS: Anion Gap 15.2 (5-19); Blood Urea Nitrogen 6 mg/dL (6-20); Calcium 8.6 mg/dL (8.5-10.5); Carbon Dioxide 20 mmol/L (22-29); Chloride 90 mmol/L (98-107); Glomerular Filtration Rate 79.9 mL/min (90-130); Glucose 89 mg/dL (65-115); Osmolality Calculated 251 mOsm/kg (285-295); Potassium 3.2 mmol/L (3.5-5.1); Sodium 122 mmol/L (136-145)
[2023-04-07 14:40] LABS: Alanine Aminotransferase 28 U/L (0-33); Albumin Level 4.2 g/dL (3.5-5.2); Alkaline Phosphatase 46 U/L (35-105); Aspartate Amino Transferase 25 U/L (0-32); Globulin 2.1 g/dL (1.3-4.6); Total Bilirubin 1.2 mg/dL (0.15-1.2); Total Protein 6.3 g/dL (6.6-8.7)
[2023-04-07 14:56] VITALS: RESP 18
[2023-04-07] MEDS: promethazine 25 mg/mL SDV 1 mL IM (15:24)
[2023-04-07 15:48] LABS: LAB Peripheral Smear Sent for Review
[2023-04-07 15:54] LABS: INR 1.21 (0.8-1.2)
[2023-04-07 16:20] LABS: Ferritin 22 ng/mL (15-150); Iron 267 ug/dL (37-145); Lactate Dehydrogenase 194 U/L (135-214); Percent Saturation 64.3 % (20-50); Thyroid Stimulating Hormone 2.73 uIU/mL (0.27-4.20); Total Iron Binding Capacity 415 mcg/dl; Unsaturated Iron Binding 148 ug/dL (112-347); Vitamin B12 484 pg/mL (232-1245)
--- NOTE | 2023-04-07 16:24 | CTR_ITS ---
PROCEDURE INFORMATION: Exam: CT Abdomen And Pelvis With Contrast Exam date and time: 04/07/2023 4:43 PM Age: 37 years old Clinical indication: Nausea and other: Fatigue, malaise, anemia TECHNIQUE: Imaging protocol: Computed tomography of the abdomen and pelvis with contrast. Radiation optimization: All CT scans at this facility use at least one of these dose optimization techniques: automated exposure control; mA and/or kV adjustment per patient size (includes targeted exams where dose is matched to clinical indication); or iterative reconstruction. Contrast material: OMNI 350; Contrast volume: 100 ml; Contrast route: INTRAVENOUS (IV); REPORTING DATA: Count of CT and Cardiac NM exams in prior 12 months: This patient has received [address] and 0 known cardiac nuclear medicine studies in the 12 months prior to the current study. COMPARISON: MR MRCP [id number] 11/03/2018 7:27 AM RADIATION DOSE METRICS: Total DLP (mGy-cm): 672.04 FINDINGS: Liver: Periportal edema noted. No mass. Gallbladder and bile ducts: Cholecystectomy. No ductal dilation. Pancreas: Normal. No ductal dilation. Spleen: Borderline mild splenomegaly measuring nearly 14 cm in length. Adrenal glands: Normal. No mass. Kidneys and ureters: Normal. No hydronephrosis. Stomach and bowel: Unremarkable. No obstruction. No mucosal thickening. Appendix: No evidence of appendicitis. Intraperitoneal space: Unremarkable. No free air. No significant fluid collection. Vasculature: Unremarkable. No abdominal aortic aneurysm. Lymph nodes: Unremarkable. No enlarged lymph nodes. Urinary bladder: Unremarkable as visualized. Reproductive: 3.3 cm left ovarian cyst. Bones/joints: No acute fracture. Soft tissues: Unremarkable. CT/CT abdomen pelvis w con* [id number] IMPRESSION: 1. Periportal edema noted, a nonspecific imaging finding. Findings could reflect sequela of acute hepatitis or fluid resuscitation among other etiologies. Otherwise, no acute findings. 2. Borderline mild splenomegaly.
[2023-04-07 16:25] VITALS: BP 119/63; PULSE 60; RESP 17; TEMP 36.4; O2SAT 100
--- NOTE | 2023-04-07 16:31 | PM.HP ---
Providers/Chief Complaint Admitting Physician: Magne Cazares MD Primary Care Provider: Aura Downs MD Chief Complaint: dizzy/vertigo/N/tingling in extremities History of Present Illness Nichole Chinchilla is a 37 year old female with a past medical history of G2, P2, history of anemia currently being worked up, history of endometrial thickening, had uterine fibroids who presents to [facility] for a 2-year history of feeling fatigue, malaise, and more acutely feeling lightheaded and dizzy and having paresthesias. Patient tells me that roughly 2 years ago, she has been having fatigue, malaise she thought her symptoms were sinus symptoms so she was on multiple rounds of antibiotics and steroids to her primary care provider but her fatigue, malaise did not improve she also had some migraines, sinus congestion sinus pressure she was given multiple allergy medications without improvement of her symptoms, also some chronic facial pain so she saw ENT, and she had sinus surgery however her symptomatology did not improve at that time she was also having vertigo-like symptoms, so she had a second opinion from another allergy doctor had allergy testing was placed on further allergy medications but continued to have facial pain, dizziness, fatigue, malaise. So then she saw her primary care, she was having some abnormal vaginal bleeding so she had a transvaginal ultrasound performed, and blood work performed which showed anemia, she required 2 units PRBC, the thought was her bleeding was from her endometrial presumed hyperplasia so she was placed on OCP, she has been taking it for a month, her last menstrual period was March 01, she tells me that her mom had her menopause in her 40s, she has had 2 kids personally, her periods are normally irregular, she typically bleeds for 4 days, she has been bleeding heavy, but nothing more than the ordinary, when she did have her 2 sons who are in their 20s, she did not have any abnormal bleeding during the delivery, no diagnosis of iron deficiency, she never received transfusions or received iron, she does note me that she has a grandma who was diagnosed with colon cancer in her 60s and since she had a colonoscopy roughly 5 years ago and she was found to have abnormally large polyp it was not cancerous and she has not followed up since then, she denies any bloody or black stools, she also had an EGD at that time which showed gastritis and the physician who performed a told her to avoid NSAIDs. She tells me that this afternoon she felt lightheaded and dizzy, had presyncopal symptoms but never passed out, although she does report passing out roughly 2 years ago for which she saw a neurologist, she also had some paresthesias in her hand, no facial droop, no slurring of her words, no focal weakness, she recently received a blood transfusion through [facility], and she thought she might be having a transfusion reaction Review of Systems Const: Denies: fever(s) Eyes: Denies: change in vision ENMT: Denies: throat pain Card: Denies: chest pain Resp: Denies: dyspnea GI: Reports: abdominal pain; Denies: nausea or vomiting : Denies: flank pain or difficulty voiding Musc: Denies: neck pain or back pain Skin/Breast: Denies: rash Neuro: Reports: numbness in extremities; Denies: headache(s) Psych: Reports: anxiety Medications/Allergies Home Medications Medication Instructions Recorded Confirmed Last Taken Type cetirizine 10 mg capsule (Zyrtec) 10 mg PO DAILY PRN Allergy Symptoms 08/02/22 04/07/23 04/07/23 History omeprazole 20 mg capsule,delayed 20 mg PO DAILY 08/02/22 04/07/23 04/07/23 History release fluticasone propionate 50 1 spray intranasal DAILY 12/22/22 04/07/23 04/07/23 History mcg/actuation nasal spray,suspension (Flonase Allergy Relief) azelastine 137 mcg (0.1 %) nasal 2 spray intranasal BID 04/06/23 04/07/23 04/07/23 History spray aerosol acetaminophen 325 mg capsule 650 mg PO QID PRN Pain 04/07/23 04/07/23 Unknown History diphenhydramine HCl 25 mg capsule 25 mg PO TID PRN Allergy Symptoms 04/07/23 04/07/23 Unknown History (Benadryl) norgestimate 0.25 mg-ethinyl See Rx Instructions .Route .COMPLEX 04/07/23 04/07/23 04/06/23 History estradiol 35 mcg tablet (Placer-Linyah) ondansetron 8 mg disintegrating 8 mg PO TID PRN Nausea And Vomiting 04/07/23 04/07/23 Unknown History tablet Allergies Allergy/AdvReac Type Severity Reaction Status Date / Time No Known Allergies Allergy Verified 04/07/23 12:58 PFSH Acute PFSH: Medical History Acid reflux Hx of back injury Hx of gastric ulcer Surgical History History of nasal surgery Hx of cholecystectomy Hx of tubal ligation Family History (Updated 04/07/23 @ 16:41 by Magen Cazares MD) Grandmother Colon cancer Social History (Updated 04/07/23 @ 16:42 by Magen Cazares MD) Smoking and tobacco status: current every day smoker Alcohol intake: never Substance/Drug Use: never Vitals/I&O/Wt Last Vital Signs Temp 97.7 F 04/07/23 12:52 Pulse 72 04/07/23 12:52 Resp 18 04/07/23 14:56 BP 171/89 04/07/23 12:52 Pulse Ox 100 04/07/23 12:52 O2 Del Method Room Air 04/07/23 12:52 04/07/23 04/07/23 04/07/23 06:59 14:59 22:59 Intake Total 1000 / 1000 1000 / 2000 Balance 1000 / 1000 1000 / 1999 Weight last 48 hrs Weight 80.739 kg Physical Exam Const: COMMON NORMALS: no acute distress and patient oriented x3 GENERAL APPEARANCE: cooperative, well kempt and well developed HENMT: COMMON NORMALS: normocephalic, Normal external nose present and oropharynx normal HEAD & SCALP: normocephalic NOSE: Normal external nose present Eye: COMMON NORMALS: Equal, round and reactive pupils present, EOMs intact bilaterally and no scleral icterus PUPIL: Yes Equal, round and reactive pupils present OTHER: Conjunctival pallor Neck/C-Spine: COMMON NORMALS: full ROM, no lymphadenopathy and Thyroid normal Lymph: LYMPHATIC: no lymphadenopathy noted Chest: COMMONS NORMALS: normal inspection of the chest Resp: COMMON NORMALS: normal respiratory effort, No retractions, No use of accessory muscles and clear to auscultation bilaterally AUSCULTATION: clear to auscultation bilaterally Cardio: COMMON NORMALS: regular rate, regular rhythm, S1 normal heart sound present, S2 normal heart sound present, No murmurs present (Cardio) and Peripheral pulses 2+ throughout RATE: regular rate RHYTHM: regular rhythm HEART SOUNDS: S1 normal heart sound present and S2 normal heart sound present PERIPHERAL PULSES: Peripheral pulses 2+ throughout GI: COMMON NORMALS: Normal to inspection, nondistended, normoactive bowel sounds present and Soft to palpation PALPATION: Yes Soft to palpation OTHER: Mild generalized tenderness : BLADDER/KIDNEY EXAM: Yes no CVA tenderness Back/Pelvis: COMMON NORMALS: no CVA tenderness Extremity: COMMON NORMALS: normal to inspection, full ROM, capillary refill normal, no calf tenderness and no pedal edema Neuro: COMMON NORMALS: patient oriented x3, CN's II-XII intact bilaterally, moves all extremities, no focal motor deficits and no sensory deficits noted MENINGEAL SIGNS: Yes no meningeal signs Psych: COMMON NORMALS: mental status grossly normal, Normal thought process present, cooperative and speech normal APPEARANCE: Yes well kempt SPEECH: Yes normal speech THOUGHT PROCESS: Normal thought process present Skin: COMMON NORMALS: turgor normal and no jaundice GENERAL SKIN EXAM: turgor normal Data 04/07/23 13:30 04/07/23 13:30 A&P Assessment and plan (1) Hyponatremia: (2) Acute anemia: (3) Pre-syncope: (4) Encounter for smoking cessation counseling: (5) Goals of care, counseling/discussion: Plan Acute hyponatremia -Serum sodium 122 -Lightheaded, dizzy, with paresthesias -We will repeat serum sodium levels -Possibly associate with dehydration -IV fluids -We will monitor serum sodium at 9 PM, then again at 4 AM Anemia with low MCV -Concerns for iron deficiency -She does also have nonspecific abdominal pain we will order CT scan abdomen pelvis -Order iron studies, B12, folate -Hemoccult stool -She likely will need an EGD and colonoscopy at some point -We will consider IV Venofer here -Continue Protonix Has endometrial thickening Endometrium: 1.7 cm. Endometrium is top normal size. There is heterogeneity throughout the endometrium. Loss of the normal junctional zone anteriorly. There is no increased vascularity. Right ovary: 2.5 cm x 2.2 cm x 2.0 cm. Normal size and vascularity, no cystic or solid masses. Left ovary: 4.6 cm x 3.7 cm x 3.0 cm. Enlarged ovary. Simple cyst associated with the ovary measures 3.5 x 2.5 x 3.6 mm. Impression ? 1.? Abnormal endometrium. Thickened endometrium with heterogeneity and a few small cystic areas. Loss of the normal junctional zone. Evaluation for adenomyosis and endometrial neoplasm should be obtained performed. 2.? LEFT ovarian cyst with a maximum diameter 3.6 cm. O-RADS 2. 3.? Mildly enlarged uterus with at least one fibroid towards the fundus measuring 10 mm. -We will have to follow-up with MARKET[employer] TRAFFIC [employer]ATOR as outpatient -Urine negative Presyncopal symptoms -Likely from dehydration, acute hyponatremia -Monitor closely -Neurochecks Smoking cessation counseling Goals of care discussion patient is a full code Patient is a full code Attestations Medical Necessity Statement*: Patient requires hospitalization for acute hyponatremia, anemia, presyncopal symptoms, outpatient with observation Diagnoses Hyponatremia E87.1 Acute anemia D64.9 Pre-syncope R55 Encounter for smoking cessation counseling Z71.6 Goals of care, counseling/discussion Z71.89
[2023-04-07 16:47] LABS: Folate Level > 20.0 ng/mL (4.8-37.3)
[2023-04-07 17:16] LABS: HCG Qualitative Urine. Negative (Negative)
[2023-04-07 17:50] LABS: Anion Gap 13.6 (5-19); Blood Urea Nitrogen 6 mg/dL (6-20); Calcium 7.8 mg/dL (8.5-10.5); Carbon Dioxide 21 mmol/L (22-29); Chloride 98 mmol/L (98-107); Glomerular Filtration Rate 93.2 mL/min (90-130); Glucose 76 mg/dL (65-115); Osmolality Calculated 264 mOsm/kg (285-295); Potassium 3.6 mmol/L (3.5-5.1); Sodium 129 mmol/L (136-145)
[2023-04-07] MEDS: pantoprazole 40 mg SDV IVP (18:12)
[2023-04-07] MEDS: potassium chloride ER 20 mEq Tablet 40 MEQ PO (18:13)
[2023-04-07] MEDS: sodium chloride 0.9% 1,000 ML 100 ML IV (18:16)
[2023-04-07 20:00] VITALS: BP 105/64; PULSE 63; RESP 17; TEMP 36.6; O2SAT 98
[2023-04-07 20:52] LABS: Estmated Average Glucose 100; Hemoglobin A1C 5.1 % (4.0-6.0)
[2023-04-07 21:32] LABS: Sodium 135 mmol/L (136-145)
[2023-04-07 21:47] LABS: Hepatitis A Antibody IgM Non-Reactive (Nonreactive); Hepatitis B Core IgM Non-Reactive (Nonreactive); Hepatitis B Surface Antigen Non-Reactive (Nonreactive); Hepatitis C Virus Antibody Non-Reactive (Nonreactive)
[2023-04-07 22:06] LABS: HIV 1 & 2 Antibody Non-Reactive (Non-Reactiv); HIV 1 & 2 Antigen Non-Reactive (Non-Reactiv)
[2023-04-08] VITALS: BP 105/66; PULSE 68; RESP 17; TEMP 36.8; O2SAT 99
[2023-04-08 03:56] VITALS: BP 111/69; PULSE 73; RESP 17; TEMP 36.6; O2SAT 98
[2023-04-08] MEDS: pantoprazole 40 mg SDV IVP (05:10)
[2023-04-08] MEDS: acetaminophen 325 mg Tablet 650 MG PO (05:14)
[2023-04-08 06:08] LABS: Basophils # 0.1 10^3/uL (0.0-0.1); Basophils % 1.2 %; Eosinophils % 0.7 %; Hematocrit 33.8 % (37.0-47.0); Hemoglobin 10.2 g/dL (11.5-15.3); Lymphocytes # 1.2 10^3/uL (0.8-4.8); Mean Corpuscular HGB Conc 30.2 g/dL (30.0-36.0); Mean Corpuscular Hemoglobin 23.3 pg (28.0-34.0); Mean Corpuscular Volume 77.2 fl (81-99); Monocytes # 0.3 10^3/uL (0.2-0.9); Monocytes % 5.4 %; Neutrophils # 4.08 10^3/uL (1.8-7.7); Neutrophils % 71.5 %; Nucleated Red Blood Cells % 0 %; Platelet Count 202 10^3/cmm (130-400); Red Blood Count 4.38 10^6/uL (4.1-5.3); Red Cell Distribution Width 25.3 % (12.1-15.1); White Blood Count 5.7 10^3/uL (4.0-10.0)
[2023-04-08 06:24] LABS: Alanine Aminotransferase 30 U/L (0-33); Albumin Level 3.7 g/dL (3.5-5.2); Alkaline Phosphatase 49 U/L (35-105); Aspartate Amino Transferase 33 U/L (0-32); Blood Urea Nitrogen 7 mg/dL (6-20); Calcium 8.5 mg/dL (8.5-10.5); Carbon Dioxide 21 mmol/L (22-29); Chloride 111 mmol/L (98-107); Glomerular Filtration Rate 79.9 mL/min (90-130); Glucose 86 mg/dL (65-115); Magnesium 1.9 mg/dL (1.7-2.3); Osmolality Calculated 291 mOsm/kg (285-295); Phosphorus 2.9 mg/dL (2.5-4.5); Sodium 142 mmol/L (136-145); Total Bilirubin 0.7 mg/dL (0.15-1.2); Total Protein 5.7 g/dL (6.6-8.7)
[2023-04-08 06:30] LABS: Anion Gap 14.6 (5-19); Potassium 4.6 mmol/L (3.5-5.1)
[2023-04-08 06:36] LABS: Mean Platelet Volume 9.5 fL (7.4-10.4)
[2023-04-08 08:00] VITALS: BP 143/78; PULSE 65; RESP 16; TEMP 36.7; O2SAT 99
[2023-04-08 12:00] VITALS: BP 123/72; PULSE 59; RESP 16; O2SAT 100
--- NOTE | 2023-04-08 12:19 | P.DS_ITS ---
Discharge Providers Date of Admission: 04/07/23 16:20 Date of Discharge: April 08, 2023 Attending Provider at Admission: Magen Cazares MD Attending Provider at Discharge: Magen Cazares MD Primary Care Provider: Aura Downs MD Diagnoses at Discharge Discharge Diagnosis (1) Hyponatremia: Status: Acute (2) Acute anemia: Status: Acute (3) Pre-syncope: Status: Acute (4) Encounter for smoking cessation counseling: Status: Acute (5) Goals of care, counseling/discussion: Status: Acute Reason for Visit Reason for Visit: dizzy/vertigo/N/tingling in extremities Hospital Course Hospital Course Nichole Chinchilla is a 37 year old female with a past medical history of G2, P2, history of anemia currently being worked up, history of endometrial thickening, had uterine fibroids who presents to [facility] for a 2-year history of feeling fatigue, malaise, and more acutely feeling lightheaded and dizzy and having paresthesias.? Patient tells me that roughly 2 years ago, she has been having fatigue, malaise she thought her symptoms were sinus symptoms so she was on multiple rounds of antibiotics and steroids to her primary care provider but her fatigue, malaise did not improve she also had some migraines, sinus congestion sinus pressure she was given multiple allergy medications without improvement of her symptoms, also some chronic facial pain so she saw ENT, and she had sinus surgery however her symptomatology did not improve at that time she was also having vertigo-like symptoms, so she had a second opinion from another allergy doctor had allergy testing was placed on further allergy medications but continued to have facial pain, dizziness, fatigue, malaise.? So then she saw her primary care, she was having some abnormal vaginal bleeding so she had a transvaginal ultrasound performed, and blood work performed which showed anemia, she required 2 units PRBC, the thought was her bleeding was from her endometrial presumed hyperplasia so she was placed on OCP, she has been taking it for a month, her last menstrual period was March 01, she tells me that her mom had her menopause in her 40s, she has had 2 kids personally, her periods are normally irregular, she typically bleeds for 4 days, she has been bleeding heavy, but nothing more than the ordinary, when she did have her 2 sons who are in their 20s, she did not have any abnormal bleeding during the delivery, no diagnosis of iron deficiency, she never received transfusions or received iron, she does note me that she has a grandma who was diagnosed with colon cancer in her 60s and since she had a colonoscopy roughly 5 years ago and she was found to have abnormally large polyp it was not cancerous and she has not followed up since then, she denies any bloody or black stools, she also had an EGD at that time which showed gastritis and the physician who performed a told her to avoid NSAIDs.? She tells me that this afternoon she felt lightheaded and dizzy, had presyncopal symptoms but never passed out, although she does report passing out roughly 2 years ago for which she saw a neurologist, she also had some paresthesias in her hand, no facial droop, no slurring of her words, no focal weakness, she recently received a blood transfusion through [facility], and she thought she might be having a transfusion reaction Patient was admitted to [facility] for acute hyponatremia, likely combination of nausea, vomiting, dehydration, hypovolemia, received fluids, over all clinically improved, serum sodium on discharge 142 Patient has been having acute on chronic anemia for the last 2 years, with low MCV, CT scan abdomen pelvis did not have any specific findings although she did have some mild megaly, iron studies seems to suggest iron deficiency although her iron levels were elevated to 67 I think that this was a false elevation as she recently received a transfusion her ferritin levels were low at 22. The question is is that this is a production problem or loss problem, she does report a family history of colon cancer and she has had a colonoscopy EGD ro nickie 5 years ago which showed potential gastritis and a large gastric polyp that she has not followed up since then. She has also endometrial thickening, and some worrisome features on her ultrasound for which she needs to see a engraver pantograph for her, but she does not describe any heavy vaginal bleeding. She has received roughly 3 units of blood in the last 2 months. Thus I have to set up an appointment for her to see general surgery for an EGD and colonoscopy in the next 2 weeks, Protonix, Carafate on discharge, if she were to have any bloody or black stools to go to the emergency room. Nonetheless she should see gynecology, for consideration of repeat ultrasound and/or endometrial biopsy. She is advised to quit smoking. Advised to avoid all NSAIDs. I have also referred her for evaluation at Dr. Whitman's office, for consideration of bone marrow biopsy if she remains anemic without a good source found of her anemia. She should follow-up with her primary care provider early next week for recheck hemoglobin potentially on Tuesday and potentially weekly hemoglobins depending on the trend Physical Exam Const: COMMON NORMALS: no acute distress and patient oriented x3 Resp: COMMON NORMALS: normal respiratory effort, No retractions, No use of accessory muscles and clear to auscultation bilaterally AUSCULTATION: clear to auscultation bilaterally Cardio: COMMON NORMALS: regular rate, regular rhythm, S1 normal heart sound present and S2 normal heart sound present RATE: regular rate RHYTHM: regular rhythm HEART SOUNDS: S1 normal heart sound present and S2 normal heart sound present GI: COMMON NORMALS: Normal to inspection, nondistended, normoactive bowel sounds present and non-tender Extremity: COMMON NORMALS: no pedal edema Neuro: COMMON NORMALS: patient oriented x3 Psych: COMMON NORMALS: mental status grossly normal Discharge Data Studies Completed and Pending Completed Studies During Hospitalization Category Date Time Status CT abdomen pelvis w con* [id number] Routine Cat Scan 04/07/23 16:24 Completed Pending at discharge Category Date Time Status KIARA Profile Rheumatology Stat Lab 04/07/23 16:34 Received Complete Blood Count w/Auto AM LABS Lab 04/09/23 04:00 Ordered Complete Blood Count w/Auto AM LABS Lab 04/10/23 04:00 Ordered Comprehensive Metabolic Panel AM LABS Lab 04/09/23 04:00 Ordered Comprehensive Metabolic Panel AM LABS Lab 04/10/23 04:00 Ordered Magnesium AM LABS Lab 04/09/23 04:00 Ordered Magnesium AM LABS Lab 04/10/23 04:00 Ordered Occult Blood Stool [Immunochemical Fecal OCB] Routine Lab 04/07/23 15:23 Uncollected Phosphorus AM LABS Lab 04/09/23 04:00 Ordered Phosphorus AM LABS Lab 04/10/23 04:00 Ordered Radiology Impressions Abdomen/Pelvis CT 04/07/23 16:24 IMPRESSION: 1. Periportal edema noted, a nonspecific imaging finding. Findings could reflect sequela of acute hepatitis or fluid resuscitation among other etiologies. Otherwise, no acute findings. 2. Borderline mild splenomegaly. Laboratory Results WBC 5.7 10^3/uL (4.0-10.0) 04/08/23 05:47 RBC 4.38 10^6/uL (4.1-5.3) 04/08/23 05:47 Hgb 10.2 g/dL (11.5-15.3) L 04/08/23 05:47 Hct 33.8 % (37.0-47.0) L 04/08/23 05:47 MCV 77.2 fl (81-99) L 04/08/23 05:47 MCH 23.3 pg (28.0-34.0) L 04/08/23 05:47 MCHC 30.2 g/dL (30.0-36.0) 04/08/23 05:47 RDW 25.3 % (12.1-15.1) H 04/08/23 05:47 Plt Count 202 10^3/cmm (130-400) 04/08/23 05:47 MPV 9.5 fL (7.4-10.4) 04/08/23 05:47 Neut % (Auto) 71.5 % 04/08/23 05:47 Lymph % (Auto) 21.0 % 04/08/23 05:47 Hodgeman % (Auto) 5.4 % 04/08/23 05:47 Eos % (Auto) 0.7 % 04/08/23 05:47 Baso % (Auto) 1.2 % 04/08/23 05:47 Neut # (Auto) 4.08 10^3/uL (1.8-7.7) 04/08/23 05:47 Lymph # (Auto) 1.2 10^3/uL (0.8-4.8) 04/08/23 05:47 Hodgeman # (Auto) 0.3 10^3/uL (0.2-0.9) 04/08/23 05:47 Eos # (Auto) 0.0 10^3/uL (0.0-0.8) 04/08/23 05:47 Baso # (Auto) 0.1 10^3/uL (0.0-0.1) 04/08/23 05:47 Nucleated RBC % (auto) 0 % 04/08/23 05:47 Nucleated RBCs # 0.0 /100WBC 04/08/23 05:47 Peripher Smr Path Cons Sent for review 04/07/23 13:30 Haptoglobin 36.0 mg/L (30-200) 04/07/23 13:30 PT 15.70 SECONDS (12.1-14.9) H 04/07/23 13:30 INR 1.21 (0.8-1.2) H 04/07/23 13:30 Sodium 142 mmol/L (136-145) 04/08/23 05:47 Potassium 4.6 mmol/L (3.5-5.1) 04/08/23 05:47 Chloride 111 mmol/L (98-107) H 04/08/23 05:47 Carbon Dioxide 21 mmol/L (22-29) L 04/08/23 05:47 Anion Gap 14.6 (5-19) 04/08/23 05:47 BUN 7 mg/dL (6-20) 04/08/23 05:47 Creatinine 0.8 mg/dL (0.5-0.9) 04/08/23 05:47 GFR Calculation 79.9 mL/min (90-130) L 04/08/23 05:47 Glucose 86 mg/dL (65-115) 04/08/23 05:47 Estimat Average Glucose 100 04/07/23 16:34 Hemoglobin A1c 5.1 % (4.0-6.0) 04/07/23 16:34 Calculated Osmolality 291 mOsm/kg (285-295) 04/08/23 05:47 Calcium 8.5 mg/dL (8.5-10.5) 04/08/23 05:47 Phosphorus 2.9 mg/dL (2.5-4.5) 04/08/23 05:47 Magnesium 1.9 mg/dL (1.7-2.3) 04/08/23 05:47 Iron 267 ug/dL (37-145) H 04/07/23 13:30 TIBC 415 mcg/dl 04/07/23 13:30 % Saturation 64.3 % (20-50) H 04/07/23 13:30 Unsat Iron Binding 148 ug/dL (112-347) 04/07/23 13:30 Ferritin 22 ng/mL (15-150) 04/07/23 13:30 Total Bilirubin 0.7 mg/dL (0.15-1.2) 04/08/23 05:47 Direct Bilirubin 0.20 mg/dL (0.00-0.30) 04/07/23 13:30 AST 33 U/L (0-32) H 04/08/23 05:47 ALT 30 U/L (0-33) 04/08/23 05:47 Alkaline Phosphatase 49 U/L (35-105) 04/08/23 05:47 Lactate Dehydrogenase 194 U/L (135-214) 04/07/23 13:30 C-Reactive Protein 3.0 mg/L (0.0-4.9) 04/07/23 13:30 Total Protein 5.7 g/dL (6.6-8.7) L 04/08/23 05:47 Albumin 3.7 g/dL (3.5-5.2) 04/08/23 05:47 Globulin 2.0 g/dL (1.3-4.6) 04/08/23 05:47 Vitamin B12 484 pg/mL (232-1245) 04/07/23 13:30 Folate > 20.0 ng/mL (4.8-37.3) 04/07/23 13:30 TSH 2.73 uIU/mL (0.27-4.20) 04/07/23 13:30 HCG, Qual Negative (Negative) 04/07/23 14:10 Ser , Semi-Qnt 1.00 mIU/mL 04/07/23 13:30 Hepatitis A IgM Ab Non-reactive (Nonreactive) 04/07/23 20:53 Hep Bs Antigen Non-reactive (Nonreactive) 04/07/23 20:53 Hep B Core IgM Ab Non-reactive (Nonreactive) 04/07/23 20:53 Hepatitis C Antibody Non-reactive (Nonreactive) 04/07/23 20:53 HIV 1&2 Ab & HIV 1 Ag Non-reactive (Non-Reactiv) 04/07/23 20:53 HIV 1&2 Antibody Non-reactive (Non-Reactiv) 04/07/23 20:53 Vitals Last Vital Signs Temp 98.0 F 04/08/23 08:00 Pulse 59 L 04/08/23 12:00 Resp 16 04/08/23 12:00 BP 123/72 04/08/23 12:00 Pulse Ox 100 04/08/23 12:00 O2 Del Method Room Air 04/08/23 03:56 Discharge Plan Discharge Patient Disposition: Home Condition: Stable Prescriptions: New Protonix 40 mg tablet,delayed release (DR/EC) 40 mg PO BID 30 Days Qty: 60 0RF Carafate 1 gram tablet 1 g PO BID 28 Days Qty: 56 0RF Continued fluticasone propionate [Flonase Allergy Relief] 50 mcg/actuation spray,suspension 1 spray intranasal DAILY Rx Instructions: administer into each nostril omeprazole 20 mg capsule,delayed release(DR/EC) 20 mg PO DAILY Zyrtec 10 mg capsule 10 mg PO DAILY PRN (Reason: Allergy Symptoms) azelastine 137 mcg (0.1 %) aerosol,spray 2 spray INTRANASAL BID Hodgeman-Linyah 0.25-35 mg-mcg tablet See Rx Instructions .ROUTE .COMPLEX Rx Instructions: as directed ondansetron 8 mg tablet,disintegrating 8 mg PO TID PRN (Reason: Nausea And Vomiting) Benadryl 25 mg Capsule 25 mg PO TID PRN (Reason: Allergy Symptoms) acetaminophen 325 mg Capsule 650 mg PO QID PRN (Reason: Pain) Discharge Orders: Discharge Order (Routine); Ordered 04/08/23 Ordered By: Magen Cazares Referrals: Aura Downs MD [Primary Care Provider] - (CLINIC WILL CALL PT WITH APPOINTMENT POSSIBLY TUESDAY. ) Josep Zhang DO [Physician] - 2 weeks (egd and colonoscopy) Aldo Park MD [Physician] - 1 week (endometrial thickening) Isma Whitman MD [Hospitalist] - 1 month (anemia, fe defeciency) Bobby Chávez MD [Physician] - 1-3 days Discharge Diet: Regular and Cardiac Discharge Activity: Resume usual activity Patient Instructions: Sucralfate (By mouth), Pantoprazole (By mouth), Anemia (GEN), Opioid Safety Activity Restrictions/Additional Instructions: - If you develop lightheaded or dizziness please go to the emergency room -If you develop bloody or black stools go to the emergency room -If you develop vaginal bleeding go to emergency room -On discharge her hemoglobin is 10.2, -Please have primary care recheck your hemoglobin on Tuesday -Then potentially based on the trend check it weekly -Please see Dr. Zhang in 2 weeks for EGD and colonoscopy -I have discharged you on Protonix, Carafate for GI protection just in case you have a GI ulcer -Please avoid any NSAIDs -Please see OB given endometrial thickening, Discharge Attestations Time Spent in Discharge Care*: greater than 30 min Quality Metrics Clinical Quality Measures [ No reported AMI, CVA or VTE this stay] Coding Level of Care Code 17838 Total time (in minutes) for Discharge: 60 Diagnoses Hyponatremia E87.1 Acute anemia D64.9 Pre-syncope R55 Encounter for smoking cessation counseling Z71.6 Goals of care, counseling/discussion Z71.89
[2023-04-11 09:55] LABS: THYROID PEROXIDASE ANTIBODIES <1 IU/mL (<9)
[2023-04-11 11:39] LABS: CENTROMERE B ANTIBODY <1.0 NEG AI (<1.0 NEG); JO-1 ANTIBODY <1.0 NEG AI (<1.0 NEG); RNP ANTIBODY <1.0 NEG AI (<1.0 NEG); SCL-70 ANTIBODY <1.0 NEG AI (<1.0 NEG); SJOGREN'S ANTIBODY (SS-A) <1.0 NEG AI (<1.0 NEG); SM ANTIBODY <1.0 NEG AI (<1.0 NEG); SS-B <1.0 NEG AI (<1.0 NEG)
[2023-04-11 12:44] LABS: COMPLEMENT COMPONENT C3C 111 mg/dL (83-193); COMPLEMENT COMPONENT C4C 26 mg/dL (15-57)
[2023-04-11 14:44] LABS: COMPLEMENT, TOTAL (CH50) 41 U/mL (31-60)
[2023-04-11 16:14] LABS: ANA SCREEN, IFA NEGATIVE (NEGATIVE)
[2023-04-15 23:10] LABS: DNA AB (DS) CRITHIDIA,IFA NEGATIVE (NEGATIVE)
== END 2023-04-08 12:56 | disposition home or self-care (01) ==
LOC: ER 16:05 → MEDSURG 17:55 → ER IP 04-08 08:44
PROVIDERS: Admitting Provider Family Medicine; Emergency Provider Family Medicine; PCP Family Medicine; Visit Provider Family Medicine
DX: E87.1 Hypo-osmolality and hyponatremia (principal); D64.9 Anemia, unspecified; Z80.0 Family history of malignant neoplasm of digestive organs; R94.39 Abnormal result of other cardiovascular function study; Z79.899 Other long term (current) drug therapy; R93.89 Abnormal findings on diagnostic imaging of other specified body structures; K21.9 Gastro-esophageal reflux disease without esophagitis; F17.200 Nicotine dependence, unspecified, uncomplicated; D72.829 Elevated white blood cell count, unspecified
CPT/HCPCS: 36415; 74177; 80048; 80053; 80074; 80076; 80503; 81025; 82607; 82728; 82746; 83010; 83036; 83540; 83550; 83615; 83735; 84100; 84295; 84443; 84702; 85025; 85610; 86140; 86160; 86162; 86235; 86255; 86376; 87806; 93005; 96361; 96372; 96374; 96375; 99285; C9113; G0378; J2405; J2550; J7030; Q9967

== ENCOUNTER 2023-05-18 15:15 | Oncology outpatient (recurring) (ONCR) | payer BC, SELFPAY ==
[2023-04-26 15:56] LABS: Basophils # 0.1 10^3/uL (0.0-0.1); Basophils % 1.3 %; Eosinophils # 0.2 10^3/uL (0.0-0.8); Eosinophils % 2.1 %; Hematocrit 37.3 % (37.0-47.0); Hemoglobin 11.5 g/dL (11.5-15.3); Lymphocytes # 2.2 10^3/uL (0.8-4.8); Lymphocytes % 27.1 %; Mean Corpuscular HGB Conc 30.8 g/dL (30.0-36.0); Mean Corpuscular Hemoglobin 24.9 pg (28.0-34.0); Mean Corpuscular Volume 80.9 fl (81-99); Mean Platelet Volume 10.7 fL (7.4-10.4); Monocytes # 0.4 10^3/uL (0.2-0.9); Neutrophils # 5.25 10^3/uL (1.8-7.7); Neutrophils % 64.4 %; Nucleated Red Blood Cells % 0 %; Platelet Count 290 10^3/cmm (130-400); Red Blood Count 4.61 10^6/uL (4.1-5.3); Reticulocyte % 1.5 % (0.5-2.0); White Blood Count 8.2 10^3/uL (4.0-10.0)
[2023-04-26 16:20] LABS: Alanine Aminotransferase 20 U/L (0-33); Albumin Level 4.1 g/dL (3.5-5.2); Alkaline Phosphatase 36 U/L (35-105); Anion Gap 13.6 (5-19); Aspartate Amino Transferase 18 U/L (0-32); Blood Urea Nitrogen 9 mg/dL (6-20); Calcium 9.2 mg/dL (8.5-10.5); Carbon Dioxide 24 mmol/L (22-29); Chloride 98 mmol/L (98-107); Globulin 2.5 g/dL (1.3-4.6); Glomerular Filtration Rate 92.7 mL/min (90-130); Glucose 82 mg/dL (65-115); Lactate Dehydrogenase 203 U/L (135-214); Osmolality Calculated 272 mOsm/kg (285-295); Potassium 3.6 mmol/L (3.5-5.1); Sodium 132 mmol/L (136-145); Total Bilirubin 0.4 mg/dL (0.15-1.2); Total Protein 6.6 g/dL (6.6-8.7)
[2023-04-28 15:25] LABS: Erythropoietin 21.4 mIU/mL (2.6-18.5)
[2023-04-28 15:49] LABS: Zinc Level, Serum or Plasma 67 mcg/dL (60-130)
[2023-04-28 20:09] LABS: Copper Level 208 mcg/dL (70-175)
[2023-04-29 20:34] LABS: Soluble Transferrin Receptor 2.43 mg/L (0.76-1.76)
[2023-05-04 07:50] LABS: HPLC Confirms; Hematocrit 37.9 % (35.0-45.0); Hemoglobin 11.7 g/dL (11.7-15.5); Hemoglobinopathy Ferritin 10 ng/mL (16-154); Hemoglobinopathy MCH 25.7 pg (27.0-33.0); Hemoglobinopathy MCHC 30.9 g/dL (32.0-36.0); Hemoglobinopathy MCV 83.3 fL (80.0-100.0); Hemoglobinopathy RDW 24.2 % (11.0-15.0); Red Blood Cell Count 4.55 Mill/uL (3.80-5.10)
[2023-05-18 15:38] LABS: Basophils # 0.1 10^3/uL (0.0-0.1); Basophils % 0.8 %; Eosinophils # 0.2 10^3/uL (0.0-0.8); Eosinophils % 2.2 %; Lymphocytes # 2.1 10^3/uL (0.8-4.8); Lymphocytes % 28.1 %; Mean Corpuscular HGB Conc 33.1 g/dL (30-55); Mean Corpuscular Hemoglobin 27.7 pg (27-33); Mean Corpuscular Volume 83.9 fl (85-98); Mean Platelet Volume 10.5 fL (7.4-10.4); Monocytes # 0.4 10^3/uL (0.2-0.9); Monocytes % 5.1 %; Neutrophils # 4.71 10^3/uL (1.8-7.7); Neutrophils % 63.7 %; Nucleated Red Blood Cells % 0 %; Platelet Count 236 10^3/cmm (157-399); Red Blood Count 4.29 10^6/uL (3.85-5.65); Red Cell Distribution Width 21.8 % (12.1-15.1)
== END 2023-05-26 23:59 | disposition home or self-care (01) ==
PROVIDERS: PCP Family Medicine; Visit Provider Internal Medicine Medical Oncology
DX: D64.9 Anemia, unspecified (principal)
CPT/HCPCS: 36415; 80053; 82525; 82668; 82728; 83010; 83020; 83615; 84238; 84630; 85014; 85018; 85025; 85041; 85045

== ENCOUNTER 2023-05-19 09:02 | Day surgery (SDC) | payer BC, SELFPAY ==
[2023-05-18 14:27] VITALS: BMI 28.1
[2023-05-19] VITALS (8 sets, daily range): BP systolic 117–145; BP diastolic 71–90; PULSE 47–74; RESP 16; TEMP 36.2–37.1; O2SAT 99–100
--- NOTE | 2023-05-19 00:33 | W.PM.OPSFHP ---
Same Day Surgery H&P Indication for Procedure/HPI DATE OF PROCEDURE: May 19, 2023 CHIEF COMPLAINT/INDICATIONFOR SURGICAL PROCEDURE: abnormal uterine bleeding PREOP DIAGNOSIS: abnormal uterine bleeding PLANNED PROCEDURE: Operation Date: 05/19/23 10:35 Proposed Procedures p Hysteroscopy w/ Myosure Hysteroscopy w/ Myosure with Endometrial Sampling(Not Applicable) - Aldo Park MD s Hysteroscopy, endometrial sampling, possible endometrial polypectomy with Myosure 96050, Intrauterine device placement 89622,N93.9, Z30.9,(Not Applicable) - Aldo Park MD 38 y.o. h/o BTL periods are irregular, skipping periods when they occur, they are prolonged and heavy presently on OCs, not working to regulate bleeding now scheduled for hysteroscopy, endometrial sampling, possible endometrial polypectomy; placement of mirena intrauterine device Medications/Allergies* Home Medications Medication Instructions Recorded Confirmed Type fluticasone propionate 50 1 spray intranasal DAILY 12/22/22 05/18/23 History mcg/actuation nasal spray,suspension (Flonase Allergy Relief) azelastine 137 mcg (0.1 %) nasal 2 spray intranasal BID 04/06/23 05/18/23 History spray aerosol ferrous sulfate 325 mg (65 mg 325 mg PO DAILY Anemic 04/25/23 05/18/23 History iron) tablet (iron) Allergies/Adverse Reactions Allergy/AdvReac Type Severity Reaction Status Date / Time No Known Allergies Allergy Verified 05/18/23 15:04 Pertinent History/Comorbid Conditions* Medical History (Updated 05/03/23 @ 15:04 by Josep Zhang DO) Acid reflux Family history of colon cancer Hx of back injury Hx of gastric ulcer Surgical History (Updated 05/03/23 @ 15:04 by Josep Zhang DO) History of esophagogastroduodenoscopy (EGD) 2018 Dr. Landa History of nasal surgery Hx of cholecystectomy Hx of colonoscopy with polypectomy 2018 Dr. Landa Hx of tubal ligation Family History (Updated 04/25/23 @ 11:18 by Tiffanie Cruz LPN) Colon cancer Grandmother Diabetes Hyperlipidemia Psychiatric illness Cancer Family/Other Paternal uncle-terminal unknown Hypertension Stroke Denies family history of Ovarian cancer CAD (coronary artery disease) Clotting disorder Dementia Heart disease Chronic kidney disease (CKD) Breast cancer Anesthesia complication Bleeding disorder Lung disease Uterine cancer Thyroid condition Social History Smoking and tobacco status: current every day smoker cigarettes Number of cigarettes per day: >20 [ Other cigarette details: 4 per day] Alcohol intake: never Substance/Drug Use: never Lives independently: Yes Marital status: Number of children: 2 Current occupational status: employed Current occupation: [employer] needs: No Agree to transfusion: Yes Pertinent Exam Findings alert, oriented x 3, clear to auscultation bilaterally and regular rate & rhythm Recommendations Surgery/Procedure today Coding Level of Care Code Acute Code for Chg Fwd Diagnoses Time Spent (min) 20
[2023-05-19] MEDS: sodium chloride 0.9% 1,000 ML 30 ML IV (09:30)
[2023-05-19] MEDS: scopolamine 1.5 Patch 1 PATCH TRANSDERMA (09:32)
[2023-05-19 09:52] LABS: OR HCG Qualitative Urine Negative (Negative)
--- NOTE | 2023-05-19 10:13 | W.PM.OPSUD ---
Surgery/Procedure H&P Update DATE OF PROCEDURE: May 19, 2023 DATE H&P PERFORMED: 05/18/23 H&P UPDATE INFORMATION: I have reviewed H&P completed within last 30 days, I have examined patient prior to procedure and Changes to prior documentation as noted here CHANGES TO PREVIOUS DOCUMENTATION: patient no longer wants the mirena IUD at this time. PREOP DIAGNOSIS: abnormal uterine bleeding PLANNED PROCEDURE: Operation Date: 05/19/23 10:35 Proposed Procedures p Hysteroscopy w/ Myosure Hysteroscopy w/ Myosure with Endometrial Sampling(Not Applicable) - Aldo Park MD s Hysteroscopy, endometrial sampling, possible endometrial polypectomy with Myosure 03469, Intrauterine device placement 59474,N93.9, Z30.9,(Not Applicable) - Aldo Park MD
--- NOTE | 2023-05-19 11:17 | P.ANESASSM_ITS ---
Pre-Anesthetic Assessment Height/Weight: Height 1.73 m Weight 83.915 kg Temp Pulse Resp BP Pulse Ox O2 Del Method O2 Flow Rate 97.2 F L 64 16 136/87 100 Room Air 6 05/19/23 11:00 05/19/23 11:16 05/19/23 11:16 05/19/23 11:16 05/19/23 11:16 05/19/23 11:16 05/19/23 11:05 Preop Diagnosis: abnormal uterine bleeding Operation Date: 05/19/23 10:35 Proposed Procedures p Hysteroscopy w/ Myosure Hysteroscopy w/ Myosure with Endometrial Sampling(Not Applicable) - Aldo Park MD s Hysteroscopy, endometrial sampling, possible endometrial polypectomy with Myosure 57423, Intrauterine device placement 35901,N93.9, Z30.9,(Not Applicable) - Aldo Park MD Familial anesthetic complications: none Was Beta [place]alia taken within 24 hours: N/A Was Clonidine taken within 24 hours: N/A Last intake: Intake Last Liquid Date 05/19/23 Last Liquid Time 02:00 Last Solid Date 05/18/23 Last Solid Time 17:00 Social Tobacco and No alcohol Exam alert, oriented x 3, clear to auscultation bilaterally and regular rate & rhythm Airway Submandibular: within normal limits Cervical ROM: within normal limits Mallampati: Class II Dentition: full Pulmonary Chronic Obstructive Pulmonary Disease CV/HEM Anemia GI Gastroesophageal Reflux Disease Neuropsych Headache Anesthetic Plan ASA status: 3 Anesthesia: General Medications/Allergies Home Medications Medication Instructions Recorded Confirmed Last Taken Type fluticasone propionate 50 1 spray intranasal DAILY 12/22/22 05/18/23 05/18/23 History mcg/actuation nasal spray,suspension (Flonase Allergy Relief) azelastine 137 mcg (0.1 %) nasal 2 spray intranasal BID 04/06/23 05/18/23 05/18/23 History spray aerosol norethindrone 1 mg-ethinyl 1 tab PO DAILY #84 tabs 04/18/23 05/18/23 05/19/23 Rx estradiol 35 mcg tablet (Pirmella) ferrous sulfate 325 mg (65 mg 325 mg PO DAILY Anemic 04/25/23 05/18/23 05/18/23 History iron) tablet (iron) pantoprazole 40 mg tablet,delayed 40 mg PO BID 6 weeks #84 tabs 05/03/23 05/18/23 05/19/23 Rx release (Protonix) Allergies Allergy/AdvReac Type Severity Reaction Status Date / Time No Known Allergies Allergy Verified 05/19/23 09:16 Current Medications Generic Name Dose Route Start Last Admin Trade Name Carlos PRN Reason Stop Dose Admin Sodium Chloride 1,000 mls @ 30 mls/hr 05/19/23 09:15 05/19/23 09:30 Sodium Chloride 0.9% IV 05/20/23 09:14 30 mls/hr .Q24H DOT Administration PFSH Anesthesia Medical History Acid reflux Family history of colon cancer Hx of back injury Hx of gastric ulcer Surgical History History of esophagogastroduodenoscopy (EGD) 2018 Dr. Landa History of nasal surgery Hx of cholecystectomy Hx of colonoscopy with polypectomy 2018 Dr. Landa Hx of tubal ligation Family History Grandmother Colon cancer Family/Other Cancer Paternal uncle-terminal unknown Other Diabetes Hyperlipidemia Hypertension Psychiatric illness Stroke Denies family history of Ovarian cancer CAD (coronary artery disease) Clotting disorder Dementia Heart disease Chronic kidney disease (CKD) Breast cancer Anesthesia complication Bleeding disorder Lung disease Uterine cancer Thyroid condition Social History Smoking and tobacco status: current every day smoker cigarettes [ Other cigarette details: 4 per day] Alcohol intake: never Substance/Drug Use: never Lives independently: Yes Marital status: Number of children: 2 Current occupational status: employed Current occupation: [employer] needs: No Agree to transfusion: Yes Data Anesthesia Cardiac Studies: No Data to Display
--- NOTE | 2023-05-19 16:16 | ANE.PACU2 ---
Inpatient post-anesthesia follow up: Airway intact: Yes Vital signs: Temperature 97.2 F Pulse Rate 66 Respiratory Rate 16 Blood Pressure 132/86 Pulse Oximetry 100 Oxygen Delivery Me thod Room Air Oxygen Flow Rate 6 Fraction of Inspir ed Oxygen Hydration adequate: Yes Nausea and vomiting: No Pain level: 2 Mental status: Baseline
--- NOTE | 2023-05-19 19:45 | PM.OP ---
Operative Report Date of procedure: May 19, 2023 Pre-op diagnosis: Preop Diagnosis abnormal uterine bleeding Post-op diagnosis: same Post-op findings: two benign-appearing polyps Moderate amount of endometrial tissue Procedure done: hysteroscopy Endometrial sampling Endometrial polypectomy with Myosure Specimens removed/disposition: endometrial tissue Surgeon: Aldo Park MD Anesthesia: General Estimated blood loss (mL): 5 Complications: none Condition: stable Disposition: PACU Brief History: 38 y.o.? h/o BTL periods are irregular, skipping periods when they occur, they are prolonged and heavy presently on OCs,? not working to regulate bleeding Procedure: Informed consent signed. Patient was taken to the operating room.? Anesthesia was induced.? Patient was placed in dorsolithotomy position, prepped and draped for hysteroscopy.? A bivalve speculum was placed in the vagina.? The anterior lip of the cervix was grasped with a sharp-toothed tenaculum.? The cervix was serially dilated with Hegar dilators.? .? A hysteroscope was placed into the endometrial cavity.? There were two benign-appearing polyps.? There was moderate endometrial tissue.? The Myosure device was inserted and used to remove the polyps and also used to obtain endometrial tissue.? The endometrial cavity was seen to be intact.? The hysteroscope and Myosure were then removed.? Endometrial tissue was sent to pathology.?? The sharp-toothed tenaculum was removed.? There was no bleeding from the endometrial cavity or cervix.? The patient was then placed supine and awakened and taken to the PACU. Postop condition:? stable EBL:? none Sponge and instruments counts were normal x 2 Complications:? none
== END 2023-05-19 11:55 | disposition home or self-care (01) ==
PROVIDERS: PCP Family Medicine; Visit Provider Obstetrics & Gynecology
PROC: 0UDB8ZZ Extraction of Endometrium, Via Natural or Artificial Opening Endoscopic (ICD-10-PCS; CPT 58558; principal; 2023-05-19 10:25)
DX: N93.9 Abnormal uterine and vaginal bleeding, unspecified (principal); J44.9 Chronic obstructive pulmonary disease, unspecified; K21.9 Gastro-esophageal reflux disease without esophagitis; F17.210 Nicotine dependence, cigarettes, uncomplicated
CPT/HCPCS: 58558; 81025; 84703; 88305; J1100; J1885; J2405; J2704; J3010; J7030

== ENCOUNTER 2023-06-02 13:19 | Outpatient (CLI) | payer BC, SELFPAY ==
--- NOTE | 2023-06-02 13:48 | MM_ITS ---
WS: [id number] BILATERAL SCREENING DIGITAL TOMOSYNTHESIS MAMMOGRAM WITH CAD HISTORY: SCREEN COMPARISON: 03/26/2022 Bilateral CC and MLO views with tomosynthesis and synthetic mammography submitted. Computer aided det ection analyzed. Breast composition: The breasts are extremely dense, which lowers the sensitivity of mammography. No suspicious masses, microcalcifications or architectural distortion. 12 mm mass in the posterior media l LEFT breast is reidentified. Mass contains a biopsy clip from a prior biopsy procedure performed on 04/15/2022. Benign fibroadenoma. No suspicious masses or calcifications. IMPRESSION: MM/[place] [id number] BI-RADS: 2-Benign FOLLOW UP: 1 Year Follow-up
== END 2023-06-02 13:20 | disposition home or self-care (01) ==
PROVIDERS: PCP Family Medicine; Visit Provider Family Medicine
DX: Z12.31 Encounter for screening mammogram for malignant neoplasm of breast (principal)
CPT/HCPCS: 77063; 77067

== ENCOUNTER 2023-06-08 07:56 | Day surgery (SDC) | payer BC, SELFPAY ==
[2023-06-06 09:01] VITALS: BMI 27.3
[2023-06-08 08:16] VITALS: BP 109/75; PULSE 79; RESP 18; TEMP 36.6; O2SAT 98
[2023-06-08 08:24] LABS: OR HCG Qualitative Urine Negative (Negative)
[2023-06-08] MEDS: sodium chloride 0.9% 1,000 ML 30 ML IV (08:31)
--- NOTE | 2023-06-08 08:38 | P.HP_ITS ---
Providers/Chief Complaint Primary Care Provider: Bobby Chávez MD Chief Complaint: D50.9, Z80.0 History of Present Illness Nichole Chinchilla is a 38 year old female Review of Systems General: Reports: 10 or more systems reviewed and unremarkable except in HPI and below Medications/Allergies Home Medications Medication Instructions Recorded Confirmed Last Taken Type fluticasone propionate 50 1 spray intranasal DAILY 12/22/22 06/06/23 06/06/23 History mcg/actuation nasal spray,suspension (Flonase Allergy Relief) azelastine 137 mcg (0.1 %) nasal 2 spray intranasal BID 04/06/23 06/06/23 06/06/23 History spray aerosol ferrous sulfate 325 mg (65 mg 325 mg PO DAILY Anemic 04/25/23 06/06/23 06/06/23 History iron) tablet (iron) pantoprazole 40 mg tablet,delayed 40 mg PO BID 6 weeks #84 tabs 05/03/23 06/06/23 06/06/23 Rx release (Protonix) Allergies Allergy/AdvReac Type Severity Reaction Status Date / Time No Known Allergies Allergy Verified 06/06/23 09:00 PFSH Acute PFSH: Medical History Acid reflux Family history of colon cancer Hx of back injury Hx of gastric ulcer Surgical History History of esophagogastroduodenoscopy (EGD) 2018 Dr. Landa History of nasal surgery Hx of cholecystectomy Hx of colonoscopy with polypectomy 2018 Dr. Landa Hx of tubal ligation Family History Grandmother Colon cancer Family/Other Cancer Paternal uncle-terminal unknown Other Diabetes Hyperlipidemia Hypertension Psychiatric illness Stroke Denies family history of Ovarian cancer CAD (coronary artery disease) Clotting disorder Dementia Heart disease Chronic kidney disease (CKD) Breast cancer Anesthesia complication Bleeding disorder Lung disease Uterine cancer Thyroid condition Social History Smoking and tobacco status: current every day smoker cigarettes [ Other cigarette details: 4 per day] Alcohol intake: never Substance/Drug Use: never Lives independently: Yes Marital status: Number of children: 2 Current occupational status: employed Current occupation: [employer] needs: No Agree to transfusion: Yes Female Reproductive History: Date of last menstrual period: 05/28/23 Vitals/I&O/Wt Last Vital Signs Temp 97.9 F 06/08/23 08:16 Pulse 79 06/08/23 08:16 Resp 18 06/08/23 08:16 BP 109/75 06/08/23 08:16 Pulse Ox 98 06/08/23 08:16 O2 Del Method Room Air 06/08/23 08:16 Weight last 48 hrs Weight 180 lb A&P Assessment and plan (1) Iron deficiency anemia: (2) Family history of colon cancer: Plan EGD and colonoscopy Attestations Medical Necessity Statement*: Home Coding Level of Care Code Acute Code for Chg Fwd Diagnoses Iron deficiency anemia D50.9 Family history of colon cancer Z80.0
[2023-06-08 09:06] VITALS: BP 110/64; PULSE 64; RESP 16; TEMP 36.3; O2SAT 100
[2023-06-08 09:18] VITALS: BP 127/71; PULSE 73; RESP 16; O2SAT 100
--- NOTE | 2023-06-08 11:11 | ANE.PACU2 ---
Inpatient post-anesthesia follow up: Airway intact: Yes Vital signs: Temperature 97.4 F Pulse Rate 73 Respiratory Rate 16 Blood Pressure 127/71 Pulse Oximetry 100 Oxygen Delivery Me thod Room Air Oxygen Flow Rate Fraction of Inspir ed Oxygen Hydration adequate: Yes Nausea and vomiting: No Pain level: 0 Mental status: Baseline
--- NOTE | 2023-06-08 11:39 | ANES.PREANE2 ---
Pre-Anesthetic Assessment Height/Weight: Height 1.73 m Weight 81.647 kg Temp Pulse Resp BP Pulse Ox O2 Del Method 97.4 F L 73 16 127/71 100 Room Air 06/08/23 09:06 06/08/23 09:18 06/08/23 09:18 06/08/23 09:18 06/08/23 09:18 06/08/23 09:18 Operation Date: 06/08/23 09:00 Proposed Procedures p [id number] EGD 94334 Colonoscopy D50.9,Z80.0(Not Applicable) - Josep Zhang DO s Colonoscopy(Not Applicable) - Josep Zhang DO Familial anesthetic complications: none Was Beta [place] taken within 24 hours: N/A Was Clonidine taken within 24 hours: N/A Last intake: Intake Last Liquid Date 06/07/23 Last Liquid Time 22:00 Last Solid Date 06/06/23 Last Solid Time 15:30 Social No alcohol and No tobacco Exam alert, oriented x 3, clear to auscultation bilaterally and regular rate & rhythm Airway Submandibular: within normal limits Cervical ROM: within normal limits Mallampati: Class II Dentition: full Pulmonary Chronic Obstructive Pulmonary Disease CV/HEM Anemia GI Gastroesophageal Reflux Disease Neuropsych Headache Anesthetic Plan ASA status: 3 Anesthesia: MAC Medications/Allergies Home Medications Medication Instructions Recorded Confirmed Last Taken Type fluticasone propionate 50 1 spray intranasal DAILY 12/22/22 06/06/23 06/06/23 History mcg/actuation nasal spray,suspension (Flonase Allergy Relief) azelastine 137 mcg (0.1 %) nasal 2 spray intranasal BID 04/06/23 06/06/23 06/06/23 History spray aerosol ferrous sulfate 325 mg (65 mg 325 mg PO DAILY Anemic 04/25/23 06/06/23 06/06/23 History iron) tablet (iron) pantoprazole 40 mg tablet,delayed 40 mg PO BID 6 weeks #84 tabs 05/03/23 06/06/23 06/06/23 Rx release (Protonix) Allergies Allergy/AdvReac Type Severity Reaction Status Date / Time No Known Allergies Allergy Verified 06/06/23 09:00 [facility] Anesthesia Medical History Acid reflux Family history of colon cancer Hx of back injury Hx of gastric ulcer Surgical History History of esophagogastroduodenoscopy (EGD) 2019 Dr. Landa History of nasal surgery Hx of cholecystectomy Hx of colonoscopy with polypectomy 2019 Dr. Landa Hx of tubal ligation Family History Grandmother Colon cancer Family/Other Cancer Paternal uncle-terminal unknown Other Diabetes Hyperlipidemia Hypertension Psychiatric illness Stroke Denies family history of Ovarian cancer CAD (coronary artery disease) Clotting disorder Dementia Heart disease Chronic kidney disease (CKD) Breast cancer Anesthesia complication Bleeding disorder Lung disease Uterine cancer Thyroid condition Social History Smoking and tobacco status: current every day smoker cigarettes [ Other cigarette details: 4 per day] Alcohol intake: never Substance/Drug Use: never Lives independently: Yes Marital status: Number of children: 2 Current occupational status: employed Current occupation: [employer] Special adriane needs: No Agree to transfusion: Yes Female Reproductive History Date of last menstrual period: 05/28/23 Data Anesthesia Cardiac Studies: No Data to Display
== END 2023-06-08 09:33 | disposition home or self-care (01) ==
PROVIDERS: Anesthesiology; PCP Family Medicine; Visit Provider Surgery
PROC: 0DJ08ZZ Inspection of Upper Intestinal Tract, Via Natural or Artificial Opening Endoscopic (ICD-10-PCS; CPT 43235; principal; 2023-06-08 09:00)
PROC: 0DJD8ZZ Inspection of Lower Intestinal Tract, Via Natural or Artificial Opening Endoscopic (ICD-10-PCS; CPT 45378; 2023-06-08 09:00)
DX: D50.9 Iron deficiency anemia, unspecified (principal); Z80.0 Family history of malignant neoplasm of digestive organs; K29.70 Gastritis, unspecified, without bleeding; K21.9 Gastro-esophageal reflux disease without esophagitis; F17.210 Nicotine dependence, cigarettes, uncomplicated
CPT/HCPCS: 43239; 45378; 81025; 84703; 88305; J2704; J7030

== ENCOUNTER 2023-06-28 08:21 | Outpatient (CLI) | payer BC, SELFPAY ==
--- NOTE | 2023-06-28 08:54 | MM_ITS ---
WS: [id number] DIAGNOSTIC LEFT DIGITAL TOMOSYNTHESIS MAMMOGRAPHY WITH CAD. LEFT breast ultrasound, limited. HISTORY: breast mass LEFT COMPARISON: 06/02/2023 and 03/26/2022 Technique: CC, MLO and ML views. Spot compression LEFT CC and MLO. Breast composition: The breasts are heterogeneously dense, which may obscure small masses. Well-circu mscribed mass in the medial posterior LEFT breast contains a prior biopsy clip. This mass localizes t o 10:00. Mass measures 11.4 mm in largest diameter. No increase in size since the prior examination. Patient also complains of pain in the upper outer quadrant of the LEFT breast near 2:00. There is den se fibroglandular tissue which is unchanged. No distortion. LEFT breast ultrasound, limited. Ultrasound at 10:00 demonstrates a hypoechoic ovoid mass with a central biopsy clip. Mass measures 1. 4 x 0.6 x 0.8 cm. No increase in size. Biopsy-proven fibroadenoma Ultrasound upper outer quadrant at 2:00 in the area of pain demonstrates dense fibroglandular heterog eneous soft tissue. No mass or increased vascularity IMPRESSION: MM/[place] [id number] BI-RADS: 2-Benign FOLLOW UP: 1 Year Follow-up LACK OF RADIOGRAPHIC EVIDENCE OF MALIGNANCY SHOULD NOT DELAY SURGICAL BIOPSY IF A CLINICALLY SUSPICIOUS MASS IS PRESENT.
== END 2023-06-28 08:22 | disposition home or self-care (01) ==
PROVIDERS: PCP Family Medicine; Visit Provider Family Medicine
DX: N63.22 Unspecified lump in the left breast, upper inner quadrant (principal)
CPT/HCPCS: 76642; 77061; G0279

== ENCOUNTER → 2023-11-18 10:27 | Outpatient (BNVA) | payer BC, SELFPAY | PROVIDERS: PCP Family Medicine; Visit Provider Family Medicine | DX: D50.9 Iron deficiency anemia, unspecified (principal); R53.83 Other fatigue | CPT/HCPCS: 80053; 82306; 82607; 82728; 83550; 85025 ==

== ENCOUNTER → 2024-07-30 11:14 | Outpatient (BNVA) | payer BC, SELFPAY | PROVIDERS: PCP Family Medicine; Visit Provider Family Medicine | DX: R53.83 Other fatigue (principal) | CPT/HCPCS: 80053; 80061; 82306; 82728; 83550; 84439; 84443; 85025 ==

== ENCOUNTER → 2025-06-04 09:29 | Outpatient (BNVA) | payer BC, SELFPAY | PROVIDERS: PCP Family Medicine; Visit Provider Family Medicine | DX: D50.9 Iron deficiency anemia, unspecified (principal) | CPT/HCPCS: 80053; 80061; 82607; 84443; 85025 ==

== ENCOUNTER 2025-06-11 07:47 | Outpatient (CLI) | payer BC, SELFPAY ==
--- NOTE | 2025-06-11 08:00 | MM_ITS ---
WS: [id number] BILATERAL 3D TOMOSYNTHESIS DIGITAL SCREENING MAMMOGRAPHY WITH CAD CLINICAL INFORMATION: screening HISTORY: Screening mammogram. No current complaints. COMPARISON: 2022 TECHNIQUE: Bilateral CC and MLO views. FINDINGS: The breasts are composed of heterogeneous fibroglandular density tissue, which can limit the detection of small underlying mass lesions. No suspicious mass, asymmetry, calcifications, or architectural distortion. No evidence of malignancy. Stable nodule inner LEFT breast with biopsy clip. MM/MM [facility] tomosynthesis [id number] IMPRESSION: DENSITY:The breasts are heterogeneously dense, which may obscure small masses. BI-RADS: 2 - Benign FOLLOW UP: 1 Year Follow-up Recommend return to annual screening mammography.
== END 2025-06-11 07:48 | disposition home or self-care (01) ==
LOC: RAD 07:48
PROVIDERS: PCP Family Medicine; Visit Provider Family Medicine
DX: Z12.39 Encounter for other screening for malignant neoplasm of breast (principal)
CPT/HCPCS: 77063; 77067; 80053; 80061; 82607; 84443; 85025